=== PATIENT | male | born 1940 | race Caucasian/White ===

== ENCOUNTER 2019-10-30 18:38 | Inpatient (IN) | payer OTHER ==
[~2019-10-30] VITALS: Ht 193 cm; Wt 89.5 kg
--- NOTE | ~2019-10-30 | EMS ---
[address] [address] EMS Patient Care Report Name: BENJA APPLE Room #: REG ABBEY Yuan#: [id number] Admission: 10/30/19 Attend Phys: Discharge: Date of : 38 Report #: [id number] THIS REPORT FOR: //name// Report Transmitted: 10/30/2019 18:19 EMS Care Summary [facility] MED-ACT Incident [id number] @ 10/30/2019 17:59 Incident Location [address] [place] [address] Patient BENJA ORR Male, 79 Years 1940 Patient Address [address] [place] [address] Patient History Dementia,Diabetes,Gastro-Esophageal Reflux Disease (GERD),Atrial Fibrillation,Cardiac Murmur, Patient Allergies No known allergies, Patient Medications Lisinopril, Quetiapine, Flomax, Metformin, Namenda, Chief Complaint sucidal thoughts Disposition Transported No Lights/[place] Reason Psychiatric Problem/Abnormal Behavior/Suicide Attempt Transported To [facility] Narrative Pt is found sitting in a wheel chair in his living room in no distress. [address] [address] EMS Patient Care Report Name: BENJA APPLE Room #: REG ABBEY Pizano.#: [id number] Admission: 10/30/19 Attend Phys: Discharge: Date of : 38 Report #: [id number] Assisted living staff states pt needs to be transferred to the ER due to making suicidal ideations. Staff states pt has a hx of dementia and has been recently frustrated. Staff states pts PCP advised that pt needed to be transferred to the ER for a psych eval. Pt denied: CP, SOB, abd pain, weakness, n/v/d. Pt expressed no further complaints/discomfort. Tx= VS, pt able wheeled out to nearby cot and able to sit and stand to cot and secured without incident. En route= pt is calm and cooperative during transport, VS, hospital contact with info only, pt has no changes en route Initial Vitals @18:11P: 100,R: 16,BP: 95/61,Pain: 0/10,GCS: 14,SpO2: 100,Revised Trauma: 12, @18:23P: 102,R: 16,BP: 94/61,GCS: 14,SpO2: 100,Revised Trauma: 12, Assessments @18:11MENTAL:Person Oriented,Time Oriented,Place Oriented,Event Oriented,SKIN:HEENT:Head/Face: No Abnormalities,LUNG SOUNDS:General: No Abnormalities,ABDOMEN:General: No Abnormalities,PELVIS//GI:EXTREMITIES:Left Arm: No Abnormalities,Right Arm: No Abnormalities,Left Leg: No Abnormalities,Right Leg: No Abnormalities,PULSE:Radial: 2+ Normal,NEURO:No Abnormalities, Impression Suicidal Ideation Procedures @18:12Surgical Mask on PatientResponse: Unchanged Timeline 17:57,Call Received 17:57,Psap Call 17:59,Dispatched 18:00,En Route 18:03,On Scene 18:08,At Patient 18:11,BP: 95/61 M,PULSE: 100,RR: 16 R,SPO2: 100 Ox,ETCO2: ,BG: ,PAIN: 0,GCS: 14, 18:12,Surgical Mask on Patient,Response: Unchanged 18:18,Depart Scene 18:23,BP: 94/61 M,PULSE: 102,RR: 16 R,SPO2: 100 Ox,ETCO2: ,BG: ,PAIN: ,GCS: 14, 18:30,At Destination 18:45,Call Closed Disclaimer v1.1 Copyright 2020 [employer] This EMS Care Summary contains data elements from the applicable legal record [facility] [address] [place] [address] EMS Patient Care Report Name: BENJA APPLE Room #: REG [facility].#: [id number] Admission: 10/30/19 Attend Phys: Discharge: Date of : 38 Report #: [id number] (which may be displayed differently). It is designed to provide pertinent information for the following purposes: continuity of care, clinical quality, and state data reporting. The complete legal record is available to ED staff and administrators of the receiving hospital in [employer]'s Patient Tracker. All data is provided "as is."
[2019-10-30 18:44] VITALS: BP 103/60
[2019-10-30 19:32] LABS: ABSOLUTE NEUTROPHILS 3.7 thou/uL (1.4-8.2); BASOPHILS 1.2 % (0.0-2.0); EOSINOPHILS 1.7 % (0.0-3.0); HEMATOCRIT 33.5 % (42.0-52.0); HEMOGLOBIN 11.3 gm/dL (14.0-18.0); LYMPHOCYTES 15.9 % (24.0-44.0); MCH 30.3 pg (26.0-34.0); MCHC 33.7 g/dL (28.0-37.0); MCV 89.9 fL (80.0-100.0); MONOCYTES 8.4 % (1.0-8.0); PLATELET COUNT 211 thou/uL (150-400); POLYS 72.8 % (36.0-66.0); RBC 3.73 mil/uL (4.50-6.00); RDW 15.2 % (10.5-14.5); WBC 5.1 thou/uL (4.0-11.0)
[2019-10-30 19:42] LABS: CALCIUM 8.7 mg/dL (8.5-10.1); CREATININE 0.8 mg/dL (0.7-1.3); POTASSIUM 4.5 mmol/L (3.5-5.1)
[2019-10-30 19:48] LABS: ALBUMIN 3.2 g/dL (3.4-5.0); TOTAL PROTEIN 6.8 g/dL (6.4-8.2)
[2019-10-30] MEDS ORDERED: ARICEPT10 MG PO (21:07)
[2019-10-30] MEDS ORDERED: LIPITOR 40 MG T40 M1 PO (21:07)
[2019-10-30] MEDS ORDERED: ASA81BEC PO (21:07)
[2019-10-30] MEDS ORDERED: ESCITALOPRAM OX10 MG PO (21:08)
[2019-10-30] MEDS ORDERED: MEMANTINE HCL10 MG PO (21:10)
[2019-10-30] MEDS ORDERED: METOPROLOL SUCC25 M1 PO (21:10)
[2019-10-30] MEDS ORDERED: LISINOPRIL20 MG PO (21:10)
[2019-10-30 21:58] LABS: INR 3.6; PROTIME 37.2 Seconds (9.3-11.4)
[2019-10-30 23:50] LABS: URINE BILIRUBIN NEGATIVE (Negative); URINE BLOOD NEGATIVE (Negative); URINE CLARITY CLEAR; URINE COLOR YELLOW; URINE GLUCOSE-RANDOM* NEGATIVE (Negative); URINE KETONES NEGATIVE (Negative); URINE LEUKOCYTES-REFLEX TRACE (Negative); URINE NITRITE-REFLEX NEGATIVE (Negative); URINE PROTEIN (DIPSTICK) NEGATIVE (Negative); URINE SPECIFIC GRAVITY >= 1.030 (1.005-1.035)
[2019-10-31] MEDS ORDERED: WARFARIN SODIUM4 MG PO (00:10)
[2019-10-31] MEDS ORDERED: B-12 DOTS500 MCG PO (00:10)
[2019-10-31] MEDS ORDERED: WARFARIN SODIUM10 MG PO (00:10)
[2019-10-31] MEDS ORDERED: EYE HEALTH ADU1 EACH PO (00:11)
[2019-10-31] MEDS ORDERED: FLOMAX0.4 MG PO (00:12)
[2019-10-31] MEDS ORDERED: MELATONIN5 MG SUBLING (00:12)
[2019-10-31] MEDS ORDERED: SEROQUEL 25 MG25 MG PO ×2 (00:13)
[2019-10-31] MEDS ORDERED: TOLTERODINE TART1 MG PO (00:14)
[2019-10-31] MEDS ORDERED: SSD CREAM 1% 5050 GM TOP (00:14)
[2019-10-31] MEDS ORDERED: ZOFRAN4 MG PO (00:15)
--- NOTE | 2019-10-31 11:38 | EKG ---
[facility] [place] [address] ELECTROCARDIOGRAM REPORT Name: BENJA APPLE Room #: REG [facility]..#: [id number] Admission: 10/30/19 Attend Phys: Discharge: Date of : 38 Report #: [id number] THIS REPORT FOR: cc: Ander Watson MD, David W. MD Couchonnal, Luis F. MD ~ THIS REPORT FOR: //name// [facility] ED Test Date: 2019-10-30 Test Time: 19:33:49 Pat Name: BENJA APPLE Department: Room: Gender: [employer]: no : 1940 Requested By: Shalom Huang Order Number: [id number] MD: Gaurang Warner Measurements Intervals [place] Rate: 91 P: [place]: QRS: 83 QRSD: 114 T: 44 QT: 391 QTc: 482 Interpretive Statements Atrial fibrillation Anterior infarct, old No previous ECG available for comparison Electronically Signed On 10-31-2019 11:37:51 CDT by Gaurang Warner [email or web address] <ELECTRONICALLY SIGNED> By: Gaurang Warner MD 10/31/19 1137 32 32 Gaurang Warner MD /TONYA
[2019-11-01 10:13] VITALS: BP 130/64
[2019-11-01 19:37] VITALS: BP 97/55
[2019-11-01 19:45] VITALS: BP 97/55
[2019-11-02 07:37] VITALS: BP 134/69
[2019-11-02 13:49] VITALS: BP 134/69
[2019-11-02 20:07] VITALS: BP 119/62
[2019-11-03 05:54] LABS: PROTIME 13.8 Seconds (9.3-11.4)
[2019-11-03 05:57] LABS: INR 1.3
[2019-11-03 08:30] VITALS: BP 127/71
[2019-11-03 09:05] VITALS: BP 127/71
[2019-11-03 19:56] VITALS: BP 101/57
[2019-11-03 22:05] VITALS: BP 101/57
[2019-11-04 07:29] VITALS: BP 120/60
[2019-11-04 11:47] LABS: ABSOLUTE NEUTROPHILS 3.9 thou/uL (1.4-8.2); BASOPHILS 0.7 % (0.0-2.0); EOSINOPHILS 0.7 % (0.0-3.0); HEMATOCRIT 35.3 % (42.0-52.0); HEMOGLOBIN 12.2 gm/dL (14.0-18.0); LYMPHOCYTES 11.7 % (24.0-44.0); MCHC 34.6 g/dL (28.0-37.0); MCV 89.5 fL (80.0-100.0); MONOCYTES 11.4 % (1.0-8.0); PLATELET COUNT 204 thou/uL (150-400); POLYS 75.5 % (36.0-66.0); RBC 3.95 mil/uL (4.50-6.00); RDW 15.4 % (10.5-14.5); WBC 5.1 thou/uL (4.0-11.0)
[2019-11-04 11:54] LABS: CALCIUM 9.1 mg/dL (8.5-10.1); CREATININE 0.7 mg/dL (0.7-1.3); POTASSIUM 4.1 mmol/L (3.5-5.1)
[2019-11-04 12:45] VITALS: BP 120/60
[2019-11-04 18:21] LABS: URINE BILIRUBIN NEGATIVE (Negative); URINE BLOOD TRACE (Negative); URINE CLARITY CLEAR; URINE COLOR YELLOW; URINE GLUCOSE-RANDOM* NEGATIVE (Negative); URINE KETONES NEGATIVE (Negative); URINE LEUKOCYTES 1+ (Negative); URINE NITRITE NEGATIVE (Negative); URINE PROTEIN (DIPSTICK) NEGATIVE (Negative)
[2019-11-04 18:29] LABS: CASTS None Seen /LPF (None Seen); SQUAMOUS 0-3 Few /LPF (0-3)
[2019-11-04 18:30] LABS: CRYSTALS None Seen /LPF (None Seen)
[2019-11-04 18:31] LABS: BACTERIA 1-9 Few /HPF (None Seen); URINE RBC None Seen /HPF (0-2); URINE WBC 0-5 Rare /HPF (0-5)
[2019-11-04 19:50] VITALS: BP 92/53
[2019-11-04 21:46] VITALS: BP 92/53
--- NOTE | 2019-11-05 07:54 | EKG ---
[facility] [place] [address] ELECTROCARDIOGRAM REPORT Name: BENJA APPLE [facility] M.R.#: [id number] Admission: 11/01/19 Attend Phys: Mami Morse MD Discharge: Date of : 38 Report #: [id number] THIS REPORT FOR: cc: Ander Watson MD, David W. 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: DEN : 1940 Requested By: Mami Morse Order Number: [id number] MD: Husam Payne Measurements Intervals [place] Rate: 77 P: TN: QRS: 77 QRSD: 118 T: 64 QT: 425 QTc: 482 Interpretive Statements Atrial fibrillation Poor R wave progression Compared to ECG 10/30/2019 19:33:49 No significant change was found Electronically Signed On 11-05-2019 7:54:27 CDT by Husam Payne [email or web address] <ELECTRONICALLY SIGNED> By: Husam Payne MD, [facility] 11/05/19 0754 1013 1013 Husam Payne MD, [facility] /EPI
[2019-11-05 09:17] VITALS: BP 116/63
[2019-11-06 07:46] VITALS: BP 98/54
[2019-11-06 14:36] VITALS: BP 98/54
[2019-11-06 20:00] VITALS: BP 106/66
[2019-11-07 07:40] VITALS: BP 126/73
[2019-11-07 09:40] VITALS: BP 126/73
[2019-11-07 20:35] VITALS: BP 82/50
[2019-11-08 07:37] VITALS: BP 145/84
[2019-11-08 20:00] VITALS: BP 108/88
[2019-11-09 04:03] VITALS: BP 108/88
[2019-11-09 08:40] VITALS: BP 111/55
[2019-11-09 19:54] VITALS: BP 107/57
[2019-11-10 09:10] VITALS: BP 98/61
[2019-11-10 19:30] VITALS: BP 107/60
[2019-11-11 06:54] LABS: ALBUMIN 3.2 g/dL (3.4-5.0); CALCIUM 8.9 mg/dL (8.5-10.1); CREATININE 0.6 mg/dL (0.7-1.3); POTASSIUM 4.4 mmol/L (3.5-5.1); TOTAL BILIRUBIN 0.9 mg/dL (0.2-1.0); TOTAL PROTEIN 6.5 g/dL (6.4-8.2)
[2019-11-11 09:13] VITALS: BP 102/65
[2019-11-11 17:14] VITALS: BP 102/65
[2019-11-11 21:07] VITALS: BP 106/54
[2019-11-12 09:16] VITALS: BP 109/65
--- NOTE | 2019-11-12 15:52 | HC ---
[facility] [place] [address] CONSULTATION Name: BENJA APPLE Room #: 526B-B ADM IN M.R.#: [id number] Admission: 11/01/19 Attend Phys: Mami Morse MD Discharge: Date of : 38 Report #: [id number] THIS REPORT FOR: cc: Ander Watson MD, David W. MD Althoff, Jeffrey R. MD ~ CC: Kaiden Morse DATE OF SERVICE: 11/09/2019 CHIEF COMPLAINT: Bilateral lower extremity ulcerations. HISTORY OF PRESENT ILLNESS: This is an 79-year-old male patient who was admitted to the Geriatric Psychiatry unit with a known history of type 2 diabetes mellitus, atrial fibrillation, hypertension, was noted to have multiple ulcerations of the lower extremities. I have been asked to see him with regard to wound care. PAST MEDICAL HISTORY: Positive for history of dementia with behavioral disturbances, suicidal ideations. He has a history of atrial fibrillation, hypertension, type 2 diabetes mellitus. He is not able to provide much information about himself. MEDICATIONS: At this time include ____, atorvastatin, escitalopram, memantine, metoprolol, lisinopril, Coumadin, aspirin, cyanocobalamin, tamsulosin, melatonin, quetiapine. ALLERGIES: No known drug allergies. SOCIAL HISTORY: Positive for ____. He lives in a penitentiary. OTHER SIGNIFICANT HISTORY AND FAMILY HISTORY: Unknown. REVIEW OF SYSTEMS: Really unobtainable due to the patient's dementia and unwillingness to answer most questions. He has no pain in his legs. PHYSICAL EXAMINATION: VITAL SIGNS: At this time include temperature 36.4, pulse 81, respiratory rate 18, blood pressure 111/55. GENERAL: This is a chronically ill-appearing male patient who appears to be in no distress. HEENT: Head normocephalic. Nose and throat are clear. NECK: Supple. LUNGS: Clear. [facility] [address] [place] [address] CONSULTATION Name: BENJA APPLE Room #: 52-B ADM IN M.R.#: [id number] Admission: 11/01/19 Attend Phys: Mami Morse MD Discharge: Date of : 38 Report #: [id number] ABDOMEN: Soft. Bowel sounds present. EXTREMITIES: Examination of the lower extremities demonstrates what appears to be an ulceration of the left and right great toes, venous type ulceration to the left lower extremity and he has a few traumatic wounds to the right forearm. LABORATORY DATA: Sodium 135, potassium 4.1, chloride 101, CO2 of 29, BUN 22, creatinine 0.7, glucose 86, calcium is 9.1, alkaline phosphatase 105, albumin is 3.2. INR 1.3. White blood cell count 5.1 with hemoglobin 12.2, hematocrit 35.3. CLINICAL IMPRESSION: 1. Traumatic wounds to the right forearm. 2. Skin tear, left elbow. 3. Vascular ulceration to the left and right great toes. 4. Venous type ulcerations to the left lower extremity. 5. Dementia with behavioral disturbance. 6. Atrial fibrillation. 7. Type 2 diabetes mellitus. 8. History of alcohol abuse. RECOMMENDATIONS: At this point in time, recommend bordered foam to the ____ forearm. We will recommend Betadine and otherwise open to air both great toes. Recommend bordered foam daily to the left lower extremity ulceration. Additionally, we will recommend arterial Dopplers to evaluate blood flow. Continue medical management of his atrial fibrillation, type 2 diabetes mellitus. He will need nutritional support to maximize wound healing and maintain glycemic control. I appreciate being asked to see him in consultation. <ELECTRONICALLY SIGNED> By: Drake Washington MD 11/12/19 1552 [id number] 1105 Drake Washington MD /nt
[2019-11-12 20:12] VITALS: BP 106/68
[2019-11-13 13:29] VITALS: BP 109/67
[2019-11-13 19:56] VITALS: BP 110/64
[2019-11-13 23:54] VITALS: BP 110/64
[2019-11-14 09:19] VITALS: BP 120/69
[2019-11-15 01:01] VITALS: BP 120/69
[2019-11-15 07:00] VITALS: BP 124/73
[2019-11-15 20:39] VITALS: BP 117/64
[2019-11-16 08:51] VITALS: BP 116/73
[2019-11-16 14:05] VITALS: BP 116/73
[2019-11-16] MEDS ORDERED: SEROQUEL 100 M100 M1 PO ×2 (17:16)
[2019-11-16] MEDS ORDERED: DEPAKOTE500 MG PO (17:16)
[2019-11-16 19:56] VITALS: BP 114/73
[2019-11-17 07:40] VITALS: BP 115/79
[2019-11-17 09:41] VITALS: BP 115/79
== END 2019-11-17 11:10 | DRG 884 ==
LOC: ER 18:38 → SBH 11-01 10:13 → EROBS 11-01 10:24 → SBH 11-01 10:27
PROVIDERS: Emergency Medicine; Hospitalist; ADMIT Psychiatry & Neurology Psychiatry; ATTEND Psychiatry & Neurology Psychiatry
DX: F03.91 Unspecified dementia, unspecified severity, with behavioral disturbance (principal); R45.851 Suicidal ideations; L97.929 Non-pressure chronic ulcer of unspecified part of left lower leg with unspecified severity; E44.1 Mild protein-calorie malnutrition; F32.9 Major depressive disorder, single episode, unspecified; G47.00 Insomnia, unspecified; I48.91 Unspecified atrial fibrillation; E11.9 Type 2 diabetes mellitus without complications; I10 Essential (primary) hypertension; F10.11 Alcohol abuse, in remission; L97.529 Non-pressure chronic ulcer of other part of left foot with unspecified severity; L97.519 Non-pressure chronic ulcer of other part of right foot with unspecified severity; S51.012A Laceration without foreign body of left elbow, initial encounter; X58.XXXA Exposure to other specified factors, initial encounter; Z66 Do not resuscitate; Z20.828 Contact with and (suspected) exposure to other viral communicable diseases; Y93.89 Activity, other specified; Y92.89 Other specified places as the place of occurrence of the external cause; Y99.8 Other external cause status; Z68.24 Body mass index [BMI] 24.0-24.9, adult; Z79.82 Long term (current) use of aspirin; Z79.01 Long term (current) use of anticoagulants; Z79.899 Other long term (current) drug therapy; Z87.891 Personal history of nicotine dependence
CPT/HCPCS: 10880

== ENCOUNTER 2019-12-01 15:40 | Inpatient (IN) | payer OTHER ==
[~2019-12-01] VITALS: Ht 190.5 cm; Wt 95.3 kg
[~2019-12-01 15:40] MED LIST: ARICEPT10 MG PO; ASA81BEC PO; B-12 DOTS500 MCG PO; DEPAKOTE500 MG PO; ESCITALOPRAM OX10 MG PO; EYE HEALTH ADU1 EACH PO; FLOMAX0.4 MG PO; LIPITOR 40 MG T40 M1 PO; LISINOPRIL20 MG PO; MELATONIN5 MG SUBLING; MEMANTINE HCL10 MG PO; METOPROLOL SUCC25 M1 PO; SEROQUEL 100 M100 M1 PO; SEROQUEL 25 MG25 MG PO; SSD CREAM 1% 5050 GM TOP; TOLTERODINE TART1 MG PO; WARFARIN SODIUM10 MG PO; WARFARIN SODIUM4 MG PO; ZOFRAN4 MG PO
[2019-12-01 15:45] VITALS: BP 98/50
[2019-12-01 17:12] LABS: ABSOLUTE NEUTROPHILS 5.6 thou/uL (1.4-8.2); BASOPHILS 0.6 % (0.0-2.0); EOSINOPHILS 0.7 % (0.0-3.0); HEMATOCRIT 29.8 % (42.0-52.0); HEMOGLOBIN 9.9 gm/dL (14.0-18.0); LYMPHOCYTES 10.4 % (24.0-44.0); MCH 29.8 pg (26.0-34.0); MCHC 33.3 g/dL (28.0-37.0); MCV 89.6 fL (80.0-100.0); MONOCYTES 11.1 % (1.0-8.0); PLATELET COUNT 201 thou/uL (150-400); POLYS 77.2 % (36.0-66.0); RBC 3.33 mil/uL (4.50-6.00); RDW 15.3 % (10.5-14.5); WBC 7.2 thou/uL (4.0-11.0)
[2019-12-01 17:21] LABS: CALCIUM 8.5 mg/dL (8.5-10.1); CREATININE 0.8 mg/dL (0.7-1.3); POTASSIUM 4.3 mmol/L (3.5-5.1)
[2019-12-01 19:45] VITALS: BP 102/60
[2019-12-01 20:30] VITALS: BP 126/73
[2019-12-01 20:55] VITALS: BP 129/77
--- NOTE | 2019-12-02 02:32 | NUR ---
PT ARRIVED FROM THE ER @2029 ALERT TO SELF CONFUSED WITH HX OF DEMENTIA. PT OREINTED TO UNIT. ADMISSION DONE. THIS NURSE CALLED PT DPOA ARTHUR AND UPDATED ABOUT CARE. PT UP TO THE BSC. HAD A BM THIS SHIFT. WOUND PICTURES TAKEN. PT HAS SCARS AND SCRATCHES FROM PREVIOUS WOUND. DRESSING PLACE ON RT UPPER ARM FROM SKIN BLEEDING. PT IMPULSIVE GETS UP WHEN HE NEEDS TO VOID. ROOM IN FRONT OF NURSES STATION. FALL PREC IN PLACE AND CALL LIGHT IN REACH WILL CONT WITH POC TILL EOS.
[2019-12-02 03:23] VITALS: BP 126/81
[2019-12-02 05:50] LABS: HEMATOCRIT 29.6 % (42.0-52.0); MCHC 33.6 g/dL (28.0-37.0); MCV 89.2 fL (80.0-100.0); RBC 3.32 mil/uL (4.50-6.00); RDW 15.1 % (10.5-14.5); WBC 5.1 thou/uL (4.0-11.0)
[2019-12-02 06:11] LABS: CALCIUM 8.8 mg/dL (8.5-10.1); CREATININE 0.8 mg/dL (0.7-1.3)
[2019-12-02 08:00] VITALS: BP 124/72
[2019-12-02 11:24] VITALS: BP 124/72
--- NOTE | 2019-12-02 12:21 | NUR ---
FAXED CLINICAL UPDATE TO [facility] RECEIVED CONFIRMATION. DP TO FOLLOW.
--- NOTE | 2019-12-02 13:04 | NUR ---
PT ALERT TO SELF ONLY, VSS, SEVERAL WOUNDS. ONE PERSON ASSIST AMBULATION. PT HAS A HISTORY OF FALLS. DRESSINGS ON LEFT ELBOW HAS BEEN REINFORCED. PT IS CONFUSED, AND IMPULSIVE WITH FALL PRECAUTIONS IN PLACE, WILL CONTINUE TO MONITOR.
--- NOTE | 2019-12-02 13:18 | NUR ---
PT ADMITTED RELATED TO CELLULITIS, LT NECROTIC TOE. CM REVIEWED CHART AND SPOKE WITH CARE TEAM. CM CALLED AND SPOKE WITH PT'S DPOA/BROTHER THIS AM. HE INDICATED THAT PT RESIDES IN [facility]. 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 PT HAD BEEN ON SBHU HERE AT [facility] FROM 10/29-11/16. DPOA INDICATED PLAN IS FOR PT TO RETURN TO [facility] ONCE MEDICALLY STABLE. CLINICAL INFOR SENT TO FACILITY. CM TO FOLLOW INDICATED WITH DC PLANNING. ORTHO, WC, AND IR ARE CONSULTED.
[2019-12-02 14:02] VITALS: BP 124/72
[2019-12-02 16:05] VITALS: BP 113/59
[2019-12-02 17:00] LABS: PROTIME 47.7 Seconds (9.3-11.4)
[2019-12-02 17:37] LABS: INR 4.7
[2019-12-02 18:56] VITALS: BP 134/90
--- NOTE | 2019-12-02 19:18 | NUR ---
I AGREE WITH NURSING ASSESSMENT DONE BY JUSTYN/CATRACHITO. I AGREE WITH NURSING NURSING NOTE DONE BY JUSTYN/CATRACHITO.
--- NOTE | 2019-12-03 02:27 | NUR ---
ASSUMED PT CARE AT 1900.PT IMPULSIVE AND CONFUSED,SITTER IN PLACE.DRSG TO HIS RACHEL TOES DONE.DR FRIED HERE TO SEE PT.PT NPO AT THIS TIME FOR SURGERY LATER IN THE DAY.IVF AND IV ABX INFUSING ORDERED.PT SLEEPING ON HIS BED AT THIS TIME.CALL LIGHT WITHIN REACH.
[2019-12-03 05:48] LABS: HEMATOCRIT 30.4 % (42.0-52.0); HEMOGLOBIN 10.1 gm/dL (14.0-18.0); MCH 29.8 pg (26.0-34.0); MCHC 33.1 g/dL (28.0-37.0); MCV 89.9 fL (80.0-100.0); RBC 3.38 mil/uL (4.50-6.00); RDW 15.1 % (10.5-14.5); WBC 5.8 thou/uL (4.0-11.0)
[2019-12-03 06:04] LABS: CALCIUM 8.5 mg/dL (8.5-10.1); CREATININE 0.6 mg/dL (0.7-1.3); POTASSIUM 4.1 mmol/L (3.5-5.1)
--- NOTE | 2019-12-03 07:40 | NUR ---
Nutrition: Assessed due to documentation of cellulitis/wound. Pt admit for cellulitis w/ gangrene of L 2nd toe. Per EMR, pt will require amputation of 2nd toe. Hx dementia, a fib, HTN, peripheral vascular disease. Was A&O to self only yesterday and noted to be confused/impulsive overnight, requiring a sitter. Is currently NPO; having surgery today. Recently here in October, 10/29 - 11/16 on [facility] unit per EMR. Seen by RD during last stay and was noted to be eating well, 100% most meals. Also liked Glucerna shakes and was receiving BID. RD plans to re-add Glucerna supplements BID once diet medically indicated to advance following amputation surgery. Weight is up +19# from 1 mo ago. 11/01/19: 197# 12/01/19: 216# Anticipate low nutrition risk and can follow up again next week once meal trends established. Encourage protein.
[2019-12-03 07:42] LABS: ALBUMIN 2.8 g/dL (3.4-5.0); DIRECT BILIRUBIN 0.2 mg/dL (<0.1-0.2); TOTAL BILIRUBIN 0.8 mg/dL (0.2-1.0); TOTAL PROTEIN 6.9 g/dL (6.4-8.2)
[2019-12-03 07:47] LABS: PROTIME 34.8 Seconds (9.3-11.4)
[2019-12-03 07:51] LABS: INR 3.4
[2019-12-03 08:53] VITALS: BP 127/95
[2019-12-03 16:44] VITALS: BP 127/80
--- NOTE | 2019-12-03 17:16 | NUR ---
PT IS ALERT TO SELF, VSS, ONE PERSON ASSIST. PT IS AGITATED AND IMPULSIVE, UNSTEADY ON HIS FEET. PT HAS A ONE ON ONE SITTER. FALL PRECAUTIONS ARE IN PLACE, WILL CONTINUE TO MONITOR.
[2019-12-03 17:47] VITALS: BP 127/80
[2019-12-03 19:44] VITALS: BP 121/75
[2019-12-04] VITALS (14 sets, daily range): BP systolic 108–169; BP diastolic 58–94
--- NOTE | 2019-12-04 01:44 | NUR ---
ASSUMED PT CARE AT AROUND 1915 HRS PT SEEMS MORE CALM.ALERT TO SELF, PLACE AND THE YEAR.TOOK HS MEDS OKAY. PT LEG WOUNDS IS WRAPPED.SCATTERD BRUISING NOTED MOSTLY TO LEGS.ROOM AIR. DENIES PAIN. SITTER IN PLACE.NPO AFTER MIDNOC. FALL PREC IN PLACE.
[2019-12-04 05:51] LABS: HEMOGLOBIN 9.9 gm/dL (14.0-18.0); MCH 30.6 pg (26.0-34.0); MCHC 34.2 g/dL (28.0-37.0); MCV 89.5 fL (80.0-100.0); RBC 3.24 mil/uL (4.50-6.00); RDW 15.9 % (10.5-14.5); WBC 6.8 thou/uL (4.0-11.0)
[2019-12-04 06:01] LABS: PROTIME 18.3 Seconds (9.3-11.4)
[2019-12-04 06:07] LABS: CALCIUM 8.6 mg/dL (8.5-10.1); CREATININE 0.8 mg/dL (0.7-1.3); POTASSIUM 3.9 mmol/L (3.5-5.1)
[2019-12-04 06:15] LABS: INR 1.8
--- NOTE | 2019-12-04 12:59 | NUR ---
Assumed care of pt. at 0700. Pt. is calm and cooperative. He does periodically ask what the plan is for his care. Pt. was transferred to angiogram and then to 2N. Report given to RN on 2N.
--- NOTE | 2019-12-04 15:51 | NUR ---
TO UNIT FROM [facility]ER BY BED, REPORT FROM BINDER CASER RN. BEDREST, RIGHT LEG SECURED D/T HEMATOMA IN THE LAB. RIGHT GROIN SOFT, DRESSING CDI NOW. VSS. SITTER AT BEDSIDE. WILL CONTINUE TO FOLLOW CLOSELY.
[2019-12-05 05:04] VITALS: BP 109/61
[2019-12-05 05:59] LABS: CALCIUM 8.5 mg/dL (8.5-10.1); CREATININE 0.6 mg/dL (0.7-1.3); POTASSIUM 3.7 mmol/L (3.5-5.1)
[2019-12-05 06:20] LABS: HEMATOCRIT 26.9 % (42.0-52.0); HEMOGLOBIN 8.9 gm/dL (14.0-18.0); MCH 29.5 pg (26.0-34.0); MCHC 33.3 g/dL (28.0-37.0); MCV 88.7 fL (80.0-100.0); RBC 3.03 mil/uL (4.50-6.00); RDW 15.1 % (10.5-14.5); WBC 5.7 thou/uL (4.0-11.0)
[2019-12-05 09:01] VITALS: BP 95/54
[2019-12-05 11:12] VITALS: BP 103/56
[2019-12-05 16:29] VITALS: BP 105/62
--- NOTE | 2019-12-05 18:21 | NUR ---
PT ASSESSED AT START OF SHIFT. PT CONFUSED BUT KNOWS HE'S IN THE HOSPITAL. TRIES TO GE UP ON HIS OWN. SITTER AT BEDSIDE. HEART RATE BETTER TODAY AFTER AM METOPROLOL. WAS UP IN THE CHAIR FOR SEVERAL HOURS. HAD LARGE SOFT BM. EATING AND DRINKING WELL.
[2019-12-05 19:38] VITALS: BP 102/59
--- NOTE | 2019-12-06 04:07 | NUR ---
ASSESSMENT DOCUMENTED.PT BEEN RESTING IN NO ACUTE DISTRESS.SITTER AT BEDSIDE.A/OX2-3 WITH CONFUSION AND FORGETFULNESS.FOLLOWS SIMPLE COMMNANDS.AFIB ON MONITOR.TACHY WITH ACTIVITIES.DRESSING TO LEFT FOOT CDI.WILL CONT TO MONITOR PER POC.
[2019-12-06 04:34] VITALS: BP 120/61
[2019-12-06 07:10] VITALS: BP 115/70
[2019-12-06 11:00] VITALS: BP 117/76
[2019-12-06 16:00] VITALS: BP 115/60
[2019-12-06 20:32] VITALS: BP 123/65
--- NOTE | 2019-12-07 03:29 | NUR ---
SITTER AT THE BEDISDE FOR SAFETY.DENIES PAIN.ABLE TO POSITION HIMSELF IN BED. NPO SINCE MIDNIGHT FOR A POSSIBLE SURGERY TODAY.MONITOR SHOWS AFIB.POC CONTINUED.
[2019-12-07 05:07] VITALS: BP 136/64
[2019-12-07 07:10] VITALS: BP 122/63
--- NOTE | 2019-12-07 12:10 | 2DMMODE ---
[facility] [place] [address] 2 D/M-MODE ECHOCARDIOGRAM Name: BENJA APPLE Room #: 206-P ADM IN M.R.#: [id number] Admission: 12/01/19 Attend Phys: Too Sorenson MD Discharge: Date of : 38 Report #: [id number] THIS REPORT FOR: cc: Ander Watson MD, David W. MD Mancuso, Gerald M. MD [facility] ~ ADDENDUM APPROVED REPORT Study performed: 12/07/2019 09:54:26 EXAM: Comprehensive 2D, Doppler, and color-flow Echocardiogram Patient Location: Bedside Room #: 206 Status: routine BSA: 2.24 HR: 71 bpm BP: 122/63 mmHg Rhythm: Atrial Fibrillation Other Information Study Quality: Fair Indications Aortic Valve Disease Murmur Atrial Fibrillation Hypertension/HDD 2D Dimensions IVSd: 11.37 (7-11mm) LVOT Diam: 19.45 (18-24mm) LVDd: 52.81 mm PWd: 11.88 (7-11mm) LVDs: 34.29 (25-40mm) Aortic Root: 29.96 mm IVC: 39.00 mm Aortic Valve AoV Peak Maximino.: 4.82 m/s AO Peak Gr.: 92.94 mmHg LVOT Max P.08 mmHg AO Mean Gr.: 56.15 mmHg LVOT Mean P.60 mmHg AO V2 Mean: 3.44 m/s LVOT Max V: 0.88 m/s AO V2 VTI: 132.61 cm LVOT Mean V: 0.58 m/s TERESA (VTI): 0.49 cm2 LVOT V1 VTI: 22.02 cm TERESA Vmax: 0.54 cm2 SV (LVOT): 65.40 mL [facility] [place] [address] 2 D/M-MODE ECHOCARDIOGRAM Name: BENJA APPLE Room #: [address] [place] [address] [place] [facility].#: [id number] Admission: 12/01/19 Attend Phys: Too Sorenson MD Discharge: Date of : 38 Report #: [id number] Pulmonary Valve PV Peak Maximino.: 0.83 m/s PV Peak Gr.: 2.77 mmHg Tricuspid Valve TR Peak Maximino.: 3.14 m/s TR Peak Gr.: 39.51 mmHg PA Pressure: 55.00 mmHg Left Ventricle The left ventricle is normal size. Mild concentric left ventricular hypertrophy. The left ventricular systolic function is normal. The left ventricular ejection fraction is within the normal range. LVEF is 55-60%. This study is not technically sufficient to allow evaluation of the LV diastolic function due to atrial fibrillation. Right Ventricle The right ventricle is normal size. The right ventricular systolic function is normal. Atria Left atrium is dilated. Right atrium is dilated. Aortic Valve The aortic valve is normal in structure. Aortic valve is calcified. Trace aortic regurgitation. Severe aortic stenosis. Mitral Valve The mitral valve is normal in structure. Mild to moderate mitral regurgitation. No evidence of mitral valve stenosis. Tricuspid Valve The tricuspid valve is normal in structure. There is moderate tricuspid regurgitation. Estimated PAP 55 mmHg. There is moderate pulmonary hypertension. Pulmonic Valve The pulmonary valve is normal in structure. Trace to mild pulmonic regurgitation. Great Vessels The aortic root is normal in size. The inferior vena cava is dilated with no inspiratory collapse. Pericardium [facility] [address] [place] [address] 2 D/M-MODE ECHOCARDIOGRAM Name: BENJA APPLE Room #: 206-P [facility] IN M.R.#: [id number] Admission: 12/01/19 Attend Phys: Too Sorenson MD Discharge: Date of : 38 Report #: [id number] There is no pericardial effusion. <Conclusion> The left ventricle is normal size. LVEF is 55-60%. Left atrium is dilated. Right atrium is dilated. The aortic valve is normal in structure. Aortic valve is calcified. Trace aortic regurgitation. The tricuspid valve is normal in structure. There is moderate tricuspid regurgitation. Estimated PAP 55 mmHg. There is moderate pulmonary hypertension. The pulmonary valve is normal in structure. Trace to mild pulmonic regurgitation. There is no pericardial effusion. severe .6cm2 mean grad 44mhg <ELECTRONICALLY SIGNED> By: Faizan Dwyer MD, FAC 12/07/199 08 08 Faizan Dwyer MD, [facility] /INF
--- NOTE | 2019-12-07 12:17 | HC ---
[facility] [place] [address] CONSULTATION Name: BENJA APPLE Room #: 206-P ADM IN M.R.#: [id number] Admission: 12/01/19 Attend Phys: Too Sorenson MD Discharge: Date of : 38 Report #: [id number] THIS REPORT FOR: cc: Ander Watson MD, David W. MD Mancuso, Gerald M. MD FACC ~ CC: Ander Sorenson CARDIOLOGY CONSULTATION HISTORY OF PRESENT ILLNESS: The patient is an 79-year-old male. 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 He does live in a facility. I am asked to weigh in on his AFib, RVR. He has been in the hospital here for some days now. He was seen by Interventional Radiology for a necrotic second great toe on the left foot, but no intervention. The SFAs were both patent. 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 No intervention. Longstanding venous stasis changes. His pulse has been increasing into the 120s to 130s with any activity. It looks from review of the records that he has permanent AFib and had been anticoagulated with warfarin and in fact his INR was supratherapeutic. He denies any real symptomatology from this. LABORATORY DATA: His current laboratory work; creatinine 0.9, potassium 3.7, glucose 108, this was yesterday. Albumin slightly low. Lactate was 1.6. His GFR was 129. CRP was elevated. His INR was 1.8 two days ago, but initially 4.7. H and H are 8.9 and 26.9, white count 5.7, platelets 208. Dr. Ray did the aortogram on 12/03 two days ago, you can see that report. PAST MEDICAL HISTORY: Positive for the cellulitis, gangrene of the left second toe, peripheral vascular disease as stated above, permanent AFib, hypertension, some early progressive dementia. MEDICATIONS: Depakote, Seroquel, atorvastatin 40, warfarin, metoprolol 25, Celexa, donepezil, melatonin at night, Namenda 10 mg, tamsulosin. SOCIAL HISTORY: He lives in a facility. 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 He had binged some alcohol, but no tobacco use, he states. FAMILY HISTORY: Negative for any premature coronary artery disease, he states. PHYSICAL EXAMINATION: GENERAL: He is pleasant and alert for the most part, seems to be appropriate in his answers. VITAL SIGNS: His pulse has been 80s to 120s. Blood pressure 114/70. HEENT: Eyes reveal no xanthelasmas. Pharynx is clear. NECK: Shows preserved upstrokes without JVD or bruits. [facility] [address] [place] [address] CONSULTATION Name: BENJA APPLE Room #: 206-P ADM IN M.R.#: [id number] Admission: 12/01/19 Attend Phys: Too Sorenson MD Discharge: Date of : 38 Report #: [id number] LUNGS: Slight prolonged expiratory phase, but clear. CARDIAC: Irregularly irregular. There is a holosystolic murmur at the apex. ABDOMEN: Soft. No HSM or abdominal bruit. EXTREMITIES: Reveal 1+ edema. There is significant venous stasis dermatitis noted to the mid quezada bilaterally. There is a bandage and what appears to be moderately gangrenous and necrotic left second toe. I cannot palpate distal pulses. NEUROLOGIC: Intact. MUSCULOSKELETAL: Generalized arthritic changes. I did not ambulate him. ASSESSMENT: 1. Permanent atrial fibrillation with rapid ventricular response. 2. Vascular disease with history of a left great toe necrosis, status post PT. 3. Hypertension. 4. Cellulitis as described above. 5. Some early dementia. RECOMMENDATIONS AND PLAN: IV Lopressor for additional rate, increase Toprol to 50 mg. We will obtain an echo Doppler and may need to add low-dose Cardizem in addition for rate control. I am not eliciting any unstable anginal or significant underlying coronary issue that would prohibit a toe amputation. We will follow with you. Obtain an echo Doppler in the morning for this holosystolic murmur, I believe this would be a mitral insufficiency murmur. He may also have some aortic valve sclerosis, although I do not anticipate significant stenosis. We will add these medicines for rate control and follow. Thank you for asking me to assist in the care of this patient. <ELECTRONICALLY SIGNED> By: Faizan Dwyer MD, FACC 12/07/19 1217 0951 1048 Faizan Dwyer MD, FACC /nt
[2019-12-07 13:13] VITALS: BP 124/63
--- NOTE | 2019-12-07 16:10 | NUR ---
PT RESIDES AT [facility] FAXED CLINICAL UPDATE TO FACILITYE RECEIVED CONFIRMATION LEFT MSG WITH ADM. DP TO FOLLOW.
[2019-12-07 18:15] VITALS: BP 108/65
--- NOTE | 2019-12-07 18:23 | NUR ---
ASSUMED CARE OF PT AT SHIFT CHANGE. ASSESSMENTS CHARTED. MEDS GIVEN PER MAY. PT ALERT TO SELF AND PLACE. PT IMPLUSIVE, SITTER IN ROOM. PT BACK FROM AMPUTATION OF 2ND TOE, LEFT FOOT. TOLERATED WELL, NO C/O PAIN. WILL CONTINUE TO MONITOR AND FOLLOW POC.
[2019-12-07 18:53] VITALS: BP 109/57
[2019-12-08 05:41] VITALS: BP 124/66
[2019-12-08 07:25] VITALS: BP 131/68
--- NOTE | 2019-12-08 07:28 | NUR ---
WILL GET UP WITHOUT CALLING WHEN HE NEEDS TO URINATE OTHERWISE HE'S QUIET IN BED.SPO2 IS LESS THAN 92%;PLACED ON O2 1L NC.MONITOR SHOWS AFIB.POC CONTINUED.
--- NOTE | 2019-12-08 08:26 | O ---
[facility] [place] [address] [place] [address] OPERATIVE REPORT Name: BENJA APPLE Room #: 216-P ADM IN M.R.#: [id number] Admission: 12/01/19 Attend Phys: Too Sorenson MD Discharge: Date of : 38 Report #: [id number] THIS REPORT FOR: cc: Ander Watson MD, David W. MD Clymer, David J. MD ~ CC: Ander Sorenson PREOPERATIVE DIAGNOSIS: Gangrenous left second toe. POSTOPERATIVE DIAGNOSIS: Gangrenous left second toe. PROCEDURE: Amputation, left second toe. SURGEON: Ander Ochoa MD INDICATIONS: This 79-year-old gentleman with severe peripheral vascular disease, has a gangrenous left second toe. He has much less significant vascular changes in other digits. I have discussed with the patient and his family the treatment options and they prefer to go ahead with amputation of the second digit only. They all understand that he does have vascular problems which might create difficulties with wound healing or ongoing infection and at some point might require a more proximal level amputation. They are hopeful that simply removing the second toe at this point will be adequate. DESCRIPTION OF PROCEDURE: The patient was taken to the operating room where he was placed under brief general anesthetic. He has continued on his current antibiotic regimen. The left foot was meticulously prepped and draped. An Esmarch bandage was used as a gentle tourniquet. A fish-mouth shaped skin incision was made at the base of the second toe. This was extended sharply through subcutaneous tissues and fascia down to the bone. The dissection was then extended in a subperiosteal fashion back to the MP joint where the amputation was completed. The toe was passed off the field. The wound was gently irrigated. There was satisfactory vascular supply and there appears to be a good chance for healing at this level. The wound was then closed using multiple 3-0 nylon sutures. A sterile dressing was applied. The patient was awakened and returned to recovery room in good condition. <ELECTRONICALLY SIGNED> By: Ander Ochoa MD 12/08/19 0826 1210 1219 Ander Ochoa MD /nt
[2019-12-08 11:29] VITALS: BP 108/52
[2019-12-08 15:41] VITALS: BP 110/40
--- NOTE | 2019-12-08 16:32 | NUR ---
ASSUMED CARE OF PT AT SHIFT CHANGE. ASSESSMENTS CHARTED. MEDS GIVEN PER MAR. PT ALERT TO SELF, DOES NOT USE CALL LIGHT. TRIES TO EXIT BED WHEN NEEDING TO URINATE. NEEDS HELP USING URINAL. NO C/O PAIN. FLUIDS INFUSING. ON 1-2L NC, D/T DESATTING. WILL CONTINUE TO MONITOR AND FOLLOW POC.
[2019-12-08 19:46] VITALS: BP 114/49
[2019-12-09 04:26] VITALS: BP 111/66
--- NOTE | 2019-12-09 05:36 | NUR ---
PATIENT IS PROGRESSING SLOWLY IN HIS CARE PLAN. VITAL SIGNS STABLE WITH PATIENT HAVING NO COMPLAINTS OF PAIN OR NAUSEA THROUGHOUT SHIFT. ORIENTED TO SELF AND SOMETIMES LOCATION, PATIENT IS CONFUSED AND UNABLE TO CALL APPROPRIATELY FOR NEEDS OR PARTICIPATE IN CARE. PATIENT HAS BEEN IMPULSIVE ONLY A FEW TIMES PRIMARILY WHEN HE NEEDS TO URINATE. SITTER TO BE DC'D BEFORE MORNING SHIFT. SURGICAL DRESSING CLEAN, DRY AND INTACT. CONTINUE PLAN OF CARE.
[2019-12-09 06:03] LABS: HEMATOCRIT 29.2 % (42.0-52.0); HEMOGLOBIN 9.6 gm/dL (14.0-18.0); MCH 29.5 pg (26.0-34.0); MCHC 32.8 g/dL (28.0-37.0); MCV 90.1 fL (80.0-100.0); RBC 3.24 mil/uL (4.50-6.00); RDW 15.9 % (10.5-14.5); WBC 6.5 thou/uL (4.0-11.0)
[2019-12-09 06:43] LABS: ALBUMIN 2.4 g/dL (3.4-5.0); CALCIUM 8.6 mg/dL (8.5-10.1); CREATININE 0.8 mg/dL (0.7-1.3); MAGNESIUM 2.2 mg/dL (1.8-2.4); POTASSIUM 3.9 mmol/L (3.5-5.1); TOTAL BILIRUBIN 0.6 mg/dL (0.2-1.0); TOTAL PROTEIN 6.5 g/dL (6.4-8.2)
--- NOTE | 2019-12-09 14:07 | PATH ---
[facility] [place] [address] PATHOLOGY RPT PROCEDURE Name: MILES APPLE Room #: 216-P ADM IN M.R.#: [id number] Admission: 12/01/19 Date of : 38 Discharge: Report #: [id number] Path Case #: [id number] [facility] Accession Number: [id number] . 01 Material submitted: . toe - LEFT SECOND TOE. Modifiers: left, second . 01 Clinical history: . GANGRENE LEFT 2ND TOE; CELLULITIS REQUIRING IV ABX . 02 Diagnosis: Toe "left second toe, amputation": - Deep penetrating ulceration with epidermal necrosis and acute inflammation extending into the underlying bone with acute osteomyelitis and abscess formation. - The skin margins appear viable. - The perpendicular bone margin reveals periosteal fibrosis but no obvious acute osteomyelitis. (SHA:anabel; 12/09/2019) S 12/09/2019 1245 Local . 02 Electronically signed: . David Arnett MD, Pathologist NPI- [id number] . 01 Gross description: . The specimen is received in formalin, labeled "Miles Apple, left second toe" and consists of the mummified disarticulated toe measuring 6.3 x 2.4 x 1.9 cm. A nail is present which is irregularly thickened yellow. The skin is extensively covered by black mummification. The proximal bone margin is a smooth collins concave articular surface. Invoice Control Clerk sections are submitted as follows after decalcification: . A1: Full-thickness through lesion A2: Perpendicular bone margin (SDY; 12/08/2019) SYU/SYU 12/08/2019 1110 Local . 02 Pathologist provided ICD-10: I96, L98.9, M86.172, L03.032 . 02 CPT . 291610, 151285 Specimen Comment: A courtesy copy of this report has been sent to [phone] Specimen Comment: [phone], Specimen Comment: Report sent to ,DR KELLER / [place] [address] PATHOLOGY RPT PROCEDURE Name: MILES APPLE Room #: 216-P [facility] IN M.R.#: [id number] Admission: 12/01/19 Date of : 38 Discharge: Report #: [id number] Path Case #: [id number] Performed at: 01 [facility] [address] [id number] MD Derrick Hamilton MD Phone: [phone] Performed at: 02 [facility] [address] [id number] MD Calos Vidal MD Phone: [phone]
[2019-12-09 16:30] VITALS: BP 121/69
--- NOTE | 2019-12-09 17:10 | NUR ---
Spoke with patient brother Elise, updated on care and dc planning. Patient has therapy reordered. Will fax evals to [facility] for their review if patient needs can be met at Assisted living. Brother hopes can return to familiar surroundings. [facility] following.
--- NOTE | 2019-12-09 17:59 | NUR ---
ASSUMED CARE OF PT AT SHIFT CHANGE. ASSESSMENTS CHARTED. MEDS GIVEN PER MAY. PT ALERT TO SELF AND SOMETIMES PLACE. PT MORE CALM, LESS IMPULSIVE TODAY. CONTINUES TO BE INCONTINENT, NOT USING URNIAL TODAY. GOOD APPETITE. SX DRESSING CHANGED, INCISION APPEARS WELL APPROXIMATED, NO DRAINAGE. WORKED WITH PT, MAX ASSIST X2. SAT ON EDGE OF BED WITH OT, TOLERATED WELL. WILL CONTINUE TO MONITOR AND FOLLOW POC.
[2019-12-09 19:35] VITALS: BP 111/75
[2019-12-10 04:04] VITALS: BP 124/67
--- NOTE | 2019-12-10 04:45 | NUR ---
PATIENT IS PROGRESSING SLOWLY IN HIS CARE PLAN. VITAL SIGNS STABLE WITH PATIENT HAVING NO COMPLAINTS OF PAIN OR NAUSEA. ORIENTED TO SELF, PATIENT IS PLEASANTLY CONFUSED AND UNABLE TO CALL APPROPRIATELY FOR NEEDS. BREATHING STABLE ON LOW LEVEL OXYGEN EVIDENCED BY ASSESSMENTS AND SPOT OXYGENATION CHECKS. SURGICAL DRESSING REMAINS CLEAN, DRY, AND INTACT. TURNS AND SKIN CARE PROVIDED. PATIENT IS INCONTINENT AT TIMES. NURSE HAS OFFERED HELP WITH URINAL FREQUENTLY THROUGHOUT SHIFT WITH ATTEMPTS SOMETIMES SUCCESSFUL. CONTINUE PLAN OF CARE.
[2019-12-10 07:52] VITALS: BP 133/67
--- NOTE | 2019-12-10 10:47 | HC ---
[facility] [place] [address] [place] [address] CONSULTATION Name: BENJA APPLE Room #: 216-P ADM IN M.R.#: [id number] Admission: 12/01/19 Attend Phys: Too Sorenson MD Discharge: Date of : 38 Report #: [id number] THIS REPORT FOR: cc: Ander Watson MD, David W. MD Althoff, Jeffrey R. MD ~ CC: Ander Sorenson DATE OF SERVICE: 12/02/2019 CHIEF COMPLAINT: Necrosis of the left second toe. HISTORY OF PRESENT ILLNESS: This is an 79-year-old male patient with whom I am familiar from a recent hospitalization in which he was hospitalized on the Behavioral Psych Unit. He had small ulcerations to his left toes and he was noted to have some degree of arterial insufficiency. It was elected to observe and proceed with standard wound care and then consider followup arteriogram. He is now admitted to the hospital; however, with possible infection in the foot with increased necrosis involving the left second toe and I have been asked to see him with regard to ongoing wound care. The patient has significant dementia with behavioral disturbances, not able to provide much information. It seems that he has some pain, although it is a little bit unclear when he was asked. ALLERGIES: No known drug allergies. PAST MEDICAL HISTORY: Positive for history of atrial fibrillation, hypertension, dementia with behavioral disturbance, and peripheral vascular disease. SOCIAL HISTORY: The patient admits to alcohol on special occasions. He is a former smoker. MEDICATIONS: Include Aricept, Lipitor, escitalopram, memantine, metoprolol, enteric-coated aspirin, cyanocobalamin, tamsulosin, and melatonin. FAMILY HISTORY: Unknown. REVIEW OF SYSTEMS: Not obtainable due to the level of dementia. PHYSICAL EXAMINATION: VITAL SIGNS: At this time include temperature of 36.7, pulse 84, respiratory rate 18, and blood pressure 124/72. GENERAL: This is a chronically ill-appearing male patient who appears to be in minimal distress. HEENT: Head normocephalic. Nose and throat are clear. [facility] [address] [place] [address] CONSULTATION Name: BENJA APPLE Room #: 216-P ADM IN M.R.#: [id number] Admission: 12/01/19 Attend Phys: Too Sorenson MD Discharge: Date of : 38 Report #: [id number] NECK: Supple. HEART: Irregular. ABDOMEN: Soft, nontender. EXTREMITIES: Examination of the extremities demonstrates diminished distal pulses. He has a gangrenous left second toe. Has some cellulitis extending from that area. He has multiple traumatic wounds to both lower legs with dry stable crust, eschar and scab, none of which appeared to be infected. CLINICAL IMPRESSION: 1. Atrial fibrillation. 2. Hypertension. 3. Dementia with behavioral disturbances. 4. Moderate protein-calorie malnutrition. RECOMMENDATIONS: At this point in time, we will obtain consultation with Interventional Radiology to see if there are any percutaneous options. Orthopedic Surgery has been contacted. We will recommend topical Betadine paint to all areas of crust, scab, eschar in order to preserve these while further evaluating his vascular status. Medical management of his other medical conditions. He will need ongoing nutritional support. Some of his dementia impairs our ability to provide some of the cares. We will try to work around this as best as possible. I appreciate being asked to see him in consultation. <ELECTRONICALLY SIGNED> By: Drake Washington MD 12/10/19 1047 0855 0946 Drake Washington MD /nt
[2019-12-10 11:00] VITALS: BP 109/54
--- NOTE | 2019-12-10 13:07 | NUR ---
FAXED CLINICAL UPDATE TO [facility] SPOKE WITH SKYLAR IN ADM SHE RECEIVED UPDATE.
[2019-12-10] MEDS ORDERED: METOPROLOL SUCC50 MG PO (14:10)
[2019-12-10] MEDS ORDERED: CARDIZEM CD 18180 M3 PO (14:10)
[2019-12-10] MEDS ORDERED: ENOXAPARIN40 MG/0.1 SUBQ (14:10)
[2019-12-10] MEDS ORDERED: ZOSYN 3.373.375 GM/1 IV (14:10)
[2019-12-10] MEDS ORDERED: ACETAMINOPHEN325 M1 PO (14:10)
[2019-12-10] MEDS ORDERED: MIRALAX17 GM PO (14:10)
--- NOTE | 2019-12-10 14:25 | NUR ---
Patient evaled for 5N. 5N liason sp with [facility] regarding level of care can accept once stable. Patient accepted to 5N with plan transfer today. Sp with Brother ELISE GALLEGOS who is in agreement with plan. He plans to visit Saturday. Sp with Alis in admissions to alert of Elise visiting Saturday they are in agreement.
[2019-12-10 14:59] VITALS: BP 102/49
--- NOTE | 2019-12-10 15:02 | NUR ---
RECEIVED PT'S CARE AROUND 0710; PT. ON BED; RESTING WITH EYES CLOSED; EQUAL CHEST RISING NOTICED; AFIB ON THE MONITOR; DURING AM ASSESSMENT ALERT TO PERSON & PLACE; NO C/O PAIN; AM MEDICATIONS GIVEN; PER ORTHO OK TO APPLIED GAUZE OVER INCISION & PERFORMED DRESSING PRN; WOUND CARE PERFORMED; ABLE TO SIT ON THE CHAIR WITH OT; PER REPORT MAX ASSISTANCE; BACK TO BED WITH PT; WEAK; INCONTINENT OF BM & VOID; SOB WITH EXERTION; D/C IV FLUIDS; BROTHER UPDATE ABOUT PT'S HEALTH & POC; ST. UNDERSTANDING; ASSESSMENT CHARGED; FOLLOWING POC; WILL PASS ON REPORT;
--- NOTE | 2019-12-16 14:49 | HC ---
[facility] [place] [address] CONSULTATION Name: BENJA APPLE Room #: 216-P [facility] IN M.R.#: [id number] Admission: 12/01/19 Attend Phys: Too Sorenson MD Discharge: 12/10/19 Date of : 38 Report #: [id number] THIS REPORT FOR: cc: Ander Watson MD, David W. MD Deardorff, Valerie A. MD ~ CC: Ander Sorenson DATE OF SERVICE: 12/03/2019 REASON FOR CONSULTATION: Left second toe gangrene. HISTORY OF PRESENT ILLNESS: The patient's history and physical are limited secondary to the patient's dementia. He apparently has been agitated and trying to leave. There is a nurse feeding him dinner when I arrive. He has moderate amount of dementia. He was admitted from his facility on the date of admission. He apparently was following with the wound care physician. In the ED, foot was red, swollen. Second toe appeared necrotic on the left. REVIEW OF SYSTEMS: Integumentary, the right lower extremity is bandaged with a wound on the dorsum of the big toe on the right. The left foot also has a large eschar over the dorsum of the big toe. Remainder of the review of systems unable to be obtained due to the patient's dementia. PAST MEDICAL HISTORY: Significant for dementia, AFib, type 2 diabetes. MEDICATIONS: Include divalproex, quetiapine, donepezil, atorvastatin, citalopram, memantine, metoprolol, aspirin, Antiox, tamsulosin, melatonin, silver sulfadiazine, ondansetron. PAST SURGICAL HISTORY: Unknown. SOCIAL HISTORY: Obtained from the charts, former smoker. Alcohol use on special occasions. Ambulatory status is unknown. LABORATORY DATA: Done on 12/03/2019 show white blood cell count 5.8, hemoglobin 10.1, hematocrit 30.4, platelet count 215. Sed rate on 12/01/2019 is elevated at 68. INR on 12/02/2019 was 4.7; 12/03/2019 was 3.4. Chemistry is grossly normal with a low albumin at 2.8, elevated vitamin B12. PHYSICAL EXAMINATION: GENERAL: The patient is alert. He is oriented to person only. He is sitting up in the bed. The nurses feeding him dinner. He is well-developed, well-nourished male in no acute distress. VITAL SIGNS: Most recent vital signs show a temperature of 36.6, heart rate 97, [facility] [address] [place] [address] CONSULTATION Name: BENJA APPLE Room #: 216-P [facility] IN [facility].#: [id number] Admission: 12/01/19 Attend Phys: Too Sorenson MD Discharge: 12/10/19 Date of : 38 Report #: [id number] respiratory rate 14, blood pressure 127/80, pulse oximetry 97% on room air. EXTREMITIES: Examination of his right lower extremity, he has a dorsal wound without significant cellulitis on the first toe. Brisk capillary refill. Sensory exam is questionable to the patient's dementia. He wiggles his toes. Grossly normal strength and stability. Left lower extremity exam second toe is black with appearance of necrosis. The dorsum of the first toe has approximately a 2-cm eschar. He has 1+ dorsalis pedis pulse. He has grossly normal strength and stability. RADIOGRAPHS: Three views of the left foot taken on 12/01/2019 show some diffuse arthrosis, calcification of his arteries. No definite osteomyelitis. IMPRESSION AND PLAN: Left second toe necrosis. It is my understanding that he is undergoing vascular studies tomorrow. He also has a wound over the dorsal aspect of the great toe, most likely another indication of peripheral vascular disease. We will have my [facility] partner operations and maintenance supervisor this weekend. Follow with him and if he requires an amputation, they may take care of that if they so desire. Thank you very much for allowing me to participate in the care of this patient. <ELECTRONICALLY SIGNED> By: Lorena Wills MD 12/16/19 1449 1735 07 Lorena Wills MD /nt
--- NOTE | 2019-12-16 15:11 | HC ---
[facility] [place] [address] CONSULTATION Name: BENJA APPLE Room #: 216-P [facility] IN M.R.#: [id number] Admission: 12/01/19 Attend Phys: Too Sorenson MD Discharge: 12/10/19 Date of : 38 Report #: [id number] THIS REPORT FOR: cc: Ander Watson MD, David W. MD Smithson, David G. MD ~ CC: Ander Sorenson DATE OF SERVICE: 12/07/2019 HISTORY OF PRESENT ILLNESS: The patient is an 79-year-old white male with a left second toe gangrene with necrosis as well as cellulitis. He has now undergone left second toe amputation by Dr. Ochoa on 12/07/2019. He is being treated for bilateral lower extremity cellulitis. We are seeing him in rehabilitation medicine consultation. PAST MEDICAL HISTORY: Includes dementia with behaviors and a [facility]. History of atrial fibrillation with rapid ventricular rate, hypertension, peripheral arterial disease. MEDICATIONS: Please see the full medication listing. ALLERGIES: No known drug allergies. SOCIAL HISTORY: He lives at [facility] in Assisted Living Facility. Used a wheelchair or a walker. The therapist contacted the facility and they noted that he mostly was wheelchair bound and has assist with mobility. HABITS: Former smoker, greater than 1 year ago quitting; alcohol only on special occasions. REVIEW OF SYSTEMS: No current complaints of chest pain, shortness of breath or abdominal discomfort. PHYSICAL EXAMINATION: GENERAL: An 79-year-old white male who recently returned from the surgical suite post left second toe amputation. NEUROLOGIC: He is alert. He could not tell me the place, but he did know the year. He was incorrect regarding the season. He knew he had surgery on his left toe. He was not in any distress. HEENT: Facies appeared symmetric. EXTREMITIES: Functional range of motion of the upper extremity, strength is grade 4-/5 to 3+/5. DTRs are trace to 1. Right lower extremity, no focal calf swelling, functional range of motion, strength is probably a grade 3+/5. Left lower extremity, has the left foot dressed. Left large toe and remaining toes [facility] [address] [place] [address] CONSULTATION Name: BENJA APPLE Room #: 216-P [facility] IN .R.#: [id number] Admission: 12/01/19 Attend Phys: Too Sorenson MD Discharge: 12/10/19 Date of : 38 Report #: [id number] are exposed. He can move the proximal left lower extremity, but seemed to have difficulty understanding when I asked him to try to wiggle his toes a little bit. He has been mod assist, trying to come to stand prior to the surgery. ASSESSMENT: An 79-year-old white male with the following problems: 1. Left second toe gangrene with necrosis, now status post left second toe amputation on 12/07/[address] Merna. 2. Bilateral lower extremity cellulitis. 3. History of dementia with behaviors in the past. 4. Atrial fibrillation with rapid ventricular rate. 5. Peripheral arterial disease. PLAN: The patient does not meet diagnostic criteria for an acute [address] [place] [address] inpatient rehabilitation stay. Would agree with considering other options as he further medically stabilizes. <ELECTRONICALLY SIGNED> By: Ander Magana MD 12/16/19 1511 1314 0042 Ander Magana MD /PMT
== END 2019-12-10 15:47 | DRG 255 ==
LOC: ER 15:40 → 2N 17:56 → 4S 17:56 → EROBS 17:56 → 4S 20:19 → 2N 12-04 15:27
PROVIDERS: Emergency Medicine; Emergency Medicine Emergency Medical Services; Nurse Practitioner; Nurse Practitioner Family; ADMIT Hospitalist; ATTEND Hospitalist
DX: E11.52 Type 2 diabetes mellitus with diabetic peripheral angiopathy with gangrene (principal); G92 Toxic encephalopathy; I96 Gangrene, not elsewhere classified; I48.20 Chronic atrial fibrillation, unspecified; I48.21 Permanent atrial fibrillation; F03.91 Unspecified dementia, unspecified severity, with behavioral disturbance; E44.0 Moderate protein-calorie malnutrition; L03.115 Cellulitis of right lower limb; D68.9 Coagulation defect, unspecified; L03.032 Cellulitis of left toe; I10 Essential (primary) hypertension; E78.5 Hyperlipidemia, unspecified; Z66 Do not resuscitate; N40.0 Benign prostatic hyperplasia without lower urinary tract symptoms; G47.00 Insomnia, unspecified; S40.922A Unspecified superficial injury of left upper arm, initial encounter; I87.8 Other specified disorders of veins; I35.0 Nonrheumatic aortic (valve) stenosis; S80.922A Unspecified superficial injury of left lower leg, initial encounter; S80.921A Unspecified superficial injury of right lower leg, initial encounter; Z20.828 Contact with and (suspected) exposure to other viral communicable diseases; I70.0 Atherosclerosis of aorta; I70.203 Unspecified atherosclerosis of native arteries of extremities, bilateral legs; X58.XXXA Exposure to other specified factors, initial encounter; I25.2 Old myocardial infarction; Z79.899 Other long term (current) drug therapy; Z79.82 Long term (current) use of aspirin; Z79.84 Long term (current) use of oral hypoglycemic drugs; Z87.891 Personal history of nicotine dependence; Z68.26 Body mass index [BMI] 26.0-26.9, adult; Y93.89 Activity, other specified; Y92.89 Other specified places as the place of occurrence of the external cause; Y99.8 Other external cause status
CPT/HCPCS: 10081; 10102; 50010; 50101; 50386; 56527; 57091; 62110; 62900; 70005

== ENCOUNTER 2019-12-10 12:35 | Inpatient (IN) | payer OTHER ==
[~2019-12-10] VITALS: Ht 193 cm; Wt 86.9 kg
--- NOTE | ~2019-12-10 | PLAN ---
[facility] [place] [place] [address] REHAB UNIT PLAN OF CARE Name: BENJA APPLE Room #: 513-P ADM IN M.R.#: [id number] Admission: 12/10/19 Attend Phys: Ander Magana MD Discharge: Date of : 38 Report #: [id number] THIS REPORT FOR: //name// CC: Ander Magana DATE OF SERVICE: 12/12/2019 PROGRESS NOTE AND OVERALL PLAN OF CARE SUBJECTIVE: The patient is seen back in followup. Temperature 36.6, pulse 76, respirations 18, blood pressure 138/65. He has been pleasant. Left foot utilizing ortho shoe. He has been on 2 liters nasal cannula. He has been working with therapies with sit to stand max assist, gait mod assist 35 feet front-wheeled walker. In occupational therapy, lower body dressing is dependent, upper body is min assist. In speech therapy, he has severe cognitive deficits and severe memory deficits. ASSESSMENT: 1. Toxic encephalopathy. 2. Medical complexity with generalized debilitation. 3. 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 4. Bilateral lower extremity cellulitis. 5. Atrial fibrillation. 6. Peripheral arterial disease. 7. Severe aortic stenosis. 8. Prior history of dementia with behaviors history. PLAN: The overall plan of care is based on the preadmission screen, post-admission physician evaluation, and information garnered from therapy assessments. 1. Estimated length of stay is probably at least the next 10 days to 2 weeks and likely longer depending upon how he does. 2. Medical prognosis is reasonably good. 3. Anticipated interventions include interdisciplinary acute inpatient rehabilitation. 4. Anticipated functional outcomes would be for the patient to improve as far as basic transfers and mobility issues, ADLs as well as cognition, so that he hopefully can get back to the prior functional level where he can go back to his assisted living. 5. Discharge destination would be back to his assisted living facility memory care. 6. Expected therapy by discipline includes PT, OT and Speech 1 hour per day [address] [address] REHAB UNIT PLAN OF CARE Name: BENJA APPLE Room #: 513-P [facility] IN .R.#: [id number] Admission: 12/10/19 Attend Phys: Ander Magana MD Discharge: Date of : 38 Report #: [id number] each 5 days a week throughout the duration of the acute inpatient rehabilitation stay. By: 1135 16 Ander Magana MD /nt
[2019-12-10] MEDS ORDERED: ACETAMINOPHEN325 M1 PO (14:10)
[2019-12-10] MEDS ORDERED: ZOSYN 3.373.375 GM/1 IV (14:10)
[2019-12-10] MEDS ORDERED: ENOXAPARIN40 MG/0.1 SUBQ (14:10)
[2019-12-10] MEDS ORDERED: METOPROLOL SUCC50 MG PO (14:10)
[2019-12-10] MEDS ORDERED: MIRALAX17 GM PO (14:10)
[2019-12-10] MEDS ORDERED: CARDIZEM CD 18180 M3 PO (14:10)
--- NOTE | 2019-12-10 17:01 | NUR ---
ASSUMED CARE OF PT AT 1600. RECEIVED REPORT FROM NATALIE PRIOR TO TRANSFER TO UNIT. PT BROUGHT TO UNIT IN BED. ADMISSION HEIGHT, WEIGHT, AND VITAL SIGNS ARE STABLE. PT IS ALERT AND ORIENTED TO PERSON ONLY. PT IS IMPULSIVE AND FORGETS INSTRUCTIONS WITHIN MINUTES. LEFT SECOND TOE AMPUTATION, DRESSING C/D/I. MULTIPLE ULCERS TO BILATERAL TOES. LEFT ELBOW HEALING WOUND. PICTURES OBTAINED. 2L O2 VIA NC. PT INCONTINENT OF URINE DURING ADMISSION ASSSESSMENT. LEFT FOREARM IV ACCESS. PT POOR HISTORIAN AND UNABLE TO FULLY PARTICIPATE IN ASSESSMENT. BROTHER NOTIFIED OF ROOM CHANGE. CONSULTS CONTACTED. ADMISSION CONSULTS NOT SIGNED AT THIS TIME DUE TO COGNITION. FALL PRECAUTIONS IN PLACE AND NURSING WILL CONTINUE TO MONITOR.
[2019-12-10 19:08] VITALS: BP 120/68
--- NOTE | 2019-12-11 02:34 | NUR ---
ASSUMED PT CARE AROUND 1930. AXOX1. CONFUSED AND IMPULSIVE. HOWEVER, EVERY PLESANT MOOD AND EASILY REDIRECTED. VSS. NO S/S ACUTE DISTRESS NOTED OR REPORTED AT THIS TIME. WILL CONT TO MONITOR FOR ANY CHANGES IN CONDITION.
[2019-12-11 05:27] LABS: HEMATOCRIT 28.9 % (42.0-52.0); HEMOGLOBIN 9.7 gm/dL (14.0-18.0); MCH 30.1 pg (26.0-34.0); MCHC 33.5 g/dL (28.0-37.0); MCV 89.7 fL (80.0-100.0); RBC 3.22 mil/uL (4.50-6.00); WBC 5.3 thou/uL (4.0-11.0)
[2019-12-11 05:32] LABS: CALCIUM 8.8 mg/dL (8.5-10.1); CREATININE 0.7 mg/dL (0.7-1.3); POTASSIUM 3.6 mmol/L (3.5-5.1)
[2019-12-11 06:04] LABS: FOLIC ACID 17.1 ng/mL (8.6-58.9)
[2019-12-11 08:00] VITALS: BP 123/67
--- NOTE | 2019-12-11 10:30 | NUR ---
cm tired x 2 calling room and then going by his room on rehab. he out in gym working with therapy. will cont following as needed for dc needs. chart review. pt from [facility]. has wheel chair. he had [facility] stay in nov 2019. tried calling rosalia brother and number doesnt work. will cont following as needed for dc needs.
--- NOTE | 2019-12-11 15:03 | NUR ---
ASSUMED CARE OF PT AT 0700. PT IS ALERT AND ORIENTED TO PERSON ONLY. PT DENIES PAIN AND PARTICIPATED IN THERAPIES. PT IS IMPULSIVE AND MAKES MULTIPLE ATTEMPTS TO SELF TRANSFER AND AMBULATE. FOR PT SAFETY PT MOVED TO ROOM NEAR NURSES STATION. FREQUENT VISUAL CHECKS BY STAFF IN PLACE. PT IS INCONTINENT OF BLADDER. FALL PRECAUTIONS IN PLACE AND NURSING WILL CONTINUE TO MONITOR.
[2019-12-11 19:47] VITALS: BP 138/65
[2019-12-12 00:06] LABS: GLYCOHEMOGLOBIN (HGB A1C) 5.9 % (4.8-5.6)
[2019-12-12 08:00] VITALS: BP 138/65
--- NOTE | 2019-12-12 10:54 | NUR ---
ASSUMED CARE AT 0700. PATIENT IS ALERT AND ORIENTED X2. PATIENT LANGSTON, DIABETES EDUCATOR ARE EQUAL. LUNGS ARE DEMINISHED. ABD IS SOFT WITH BSX4. LEFT FOOT HAS ORTHO SHOE ON. PATIENT HAS 02 AT 2L PER N/C. PATIENT HAS S.L. IN HIS LEFT F.A. UP IN THE CHAIR FOR BREAKFAST. LEFT FOOT DRESSING CHANGED. FALL AND SAFETY PROTOCOLS IN PLACE. DENIES PAIN AT THIS TIME. UP IWTH ASSIST OF 2 PEOPLE TO THE BR AND GAIT BELT. CONTINUES TO PROGRESS SLOWLY TOWARDS D/C GOALS. WILL CONTINUE TO MONITER.
[2019-12-12 19:53] VITALS: BP 106/60
[2019-12-13 08:17] VITALS: BP 127/83
--- NOTE | 2019-12-13 10:17 | NUR ---
ASSUMED CARE AT 0700. PATIENT IS ALERT AND ORIENTED X4. PATIENT LANGSTON'S, MANAGER OF MAINTENANCE ARE EQUAL. LUNGS ARE CLEAR . ABD IS SOFT WITH BSX4. PATIENT WAS INCONTINENT OF URINE. IN BED AND ON THE FLOOR. UP IN THE W/C FOR BREAKFAST. S.L. IN HIS LEFT FORARM IS PATIENT AND INTACT. FALL AND SAFETY PROTOCOLS IN PLACE. DENIES PAIN AT THIS TIME. CONTINUE TO PROGRESS SLOWLY TOWARDS D/C GOALS. DRESSING CHANGES DONE TO BOTH FEET ORDERED. WILL CONTINUE TO MONITER.
[2019-12-13 19:41] VITALS: BP 118/60
--- NOTE | 2019-12-14 05:05 | NUR ---
Patient is alert and oriented x3 when fully awake, slightly hard of hearing, with heart murmurs when ascultated. His breathing and heart rate are within normal ranges. All other vitals are normal and he shows no signs of cyanosis. Patient statrted the shift on room air (weaned off nasal cannula). By midnight he was unable to maintain oxygen saturations above 89 on room air and was placed back on oxygen. Oxygen saturations did not change on 1L and 2L respectively, so patient was maintained on 3L for the rest of the shift.
[2019-12-14 08:00] VITALS: BP 114/59
--- NOTE | 2019-12-14 13:37 | NUR ---
late entry 12/09: patient was incontinent and continent of bowel and bladder this date.
--- NOTE | 2019-12-14 14:23 | NUR ---
ASSUMED CARE AT 0700. PT HAD AN UNEVENTFUL NIGHT AND SLEPT FAIRLY GOOD. DENIES ANY PAIN. UP WITH MODERATE AMOUNT OF ASSISTANCE TO THE BATHROOM. APPETITE GOOD AND ATE 100% OF HIS MEALS. PT IS PUT ON ROOM AIR AND SAT ABOVE 96%. HAD A PORTABLE CXR TODAY. DRESSING TO HIS WOUND DONE AND DOCUMENTED. PT IS COOPERATIVE AND CALM AND EASILY REORIENTATED. PARTICIPATING AND PROGRESSING IN THERAPY. WILL CONT TO MONITOR.
--- NOTE | 2019-12-14 16:26 | NUR ---
I have reviewed the documentation by RAMANA HUFF from 12/14/19 to 12/14/19 and I concur with it. PANDA GEORGE, PT, DPT
[2019-12-14 20:14] VITALS: BP 138/69
--- NOTE | 2019-12-15 04:13 | NUR ---
assumed care approx 1900 evening 12/13. pt lying in bed at change of shift somewhat impulsive trying to climb out of bed when needing to void. pt assisted with urinal several times in night. pt able to void in urinal. pt took hs meds with water tolerating well. pt close to nurses station for easier observation. bed alarm on and call light in reach. will continue to monitor.
[2019-12-15 07:30] VITALS: BP 146/85
--- NOTE | 2019-12-15 10:07 | HC ---
[facility] [place] [place] [address] CONSULTATION Name: BENJA APPLE Room #: 513-P ADM IN M.R.#: [id number] Admission: 12/10/19 Attend Phys: Ander Magana MD Discharge: Date of : 38 Report #: [id number] THIS REPORT FOR: cc: Ander Watson MD, David W. MD Deutch, Neal B. PhD ~ CC: Ander Magana DATE OF SERVICE: 12/12/2019 BEHAVIORAL STATUS EXAM ATTENDING PHYSICIAN: Ander Magana MD BOTTOM POLISHER: Benigno Moore, PhD CLINICAL PRESENTATION: The patient today is an 79-year-old male admitted to the rehabilitation unit at [facility] for a comprehensive inpatient rehabilitation program. He was initially seen at the [facility] with a left foot wound that was diagnosed with gangrene of the left second toe and cellulitis, bilateral lower extremities. He underwent a left second toe amputation on 12/07/2019. The patient has a premorbid dementia. During his initial hospitalization his diagnosis included encephalopathy superimposed on longstanding dementia. The patient was confused and needed to be restrained, which gradually improved. He carries an assessment on the rehab unit that included a toxic metabolic encephalopathy, medical complexity with generalized debilitation, left second toe gangrene with necrosis, status post left second toe amputation, weightbearing as tolerated, bilateral lower extremity cellulitis, atrial fibrillation, peripheral artery disease, severe aortic stenosis and dementia and behavior disorder by history A complete description of his medical condition and history can be found in his medical record. Neuropsychological consultation was requested to provide assistance in the assessment of cognitive and emotional status and to provide recommendations and services. Prior to this most recent medical event, he was living in an assisted living Memory Care Facility. 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 His brother reported to have had a stroke about 3 years ago, which contributed to his severe decline in cognitive functioning. He has 7 siblings and one brother is his current DPOA. The patient has required assistance with instrumental and basic activities of daily living. The patient was in his Senior Behavioral Unit in the hospital in [address] [address] CONSULTATION Name: BENJA APPLE Room #: 513-P [facility] IN [facility].#: [id number] Admission: 12/10/19 Attend Phys: Ander Magana MD Discharge: Date of : 38 Report #: [id number] November because of decline in behavioral and cognitive functioning. TECHNIQUES UTILIZED: Clinical interview, review of medical records, staff consultation and behavioral observation, mini mental status exam 2 standard version, family interview -- brother. EXAMINATION FINDINGS: The patient was alert and cooperative with the assessment. He was unable to describe the reason for his hospitalization. The patient does report accurately his having been employed as a waste chopper and having obtained a Ph.D. in theology. He describes having anxiety and difficulty with sleep. He does not report problems with appetite or depressed mood. Difficulty with memory is acknowledged. He does not report auditory or visual hallucinations. There is no evidence of aphasia. His performance on the MMSE 2 brief version is extremely low with a raw score of 4/16. He was 3/3 for initial registration, 1/5 for orientation to time, 0/[address] and 0/3 for immediate recall of 3 items after a brief time delay and distraction. The patient was tangential and having difficulty in carrying out instructions. DIAGNOSTIC IMPRESSION: Major neurocognitive disorder (dementia), possibly due to Alzheimer's and Vascular disease, with intermittent behavioral disorder -- likely in the moderate range with severe cognitive deficits. RECOMMENDATIONS: The patient will continue to require 24-hour care and assistance in the management of medication, finances and nutrition. The Memory Care unit will likely be satisfactory in meeting his needs for environmental support and treatment. Continued psychiatric management and medication for behavior disorder. Thank you very much for allowing me to provide the consultation on this patient. <ELECTRONICALLY SIGNED> By: Benigno Moore, PhD 12/15/19 [phone] Benigno Moore, PhD /nt
--- NOTE | 2019-12-15 12:51 | NUR ---
team meeting, reccommendation: dc 12/24 to [facility].
--- NOTE | 2019-12-15 16:18 | NUR ---
ASSUMED CARE AT 0700. PT HAD AN UNEVENTFUL NIGHT AND SLEPT FAIRLY WELL. STILL IMPULSIVE AND GETS UP FREQUENTLY TO VOID BOTH CONTINENT AND INCONTINENCE. URINE DOES NOT HAVE AN ODOR AND IS CLEAR. PT DENIES ANY BLADDER SPASM OR PAIN. NEEDS FREQUENT REORIENTATION. DRESSING TO LEFT TOE DONE. PROGRESSING TOWARDS GOAL AND PLAN FOR DISCHARGE ON 12/24 TO MEMORY CARE AT [facility].
[2019-12-15 18:55] VITALS: BP 114/60
--- NOTE | 2019-12-16 03:08 | NUR ---
Assumed care of patient this pm shift. Patient in good spirits, pleasantly confused. Patient is alert and oriented to person and place. Patient takes medications whole and is adherent with scheduled meds. Patient has been up frequently with urgency to urinate mostly making very small amounts. Patients assessment shows no signs of acute distress. Vital signs stable. Patient ambulates with a walker and gait belt x1 assistance. Patient has slept intermittently through the night. We will continue to monitor per hospital policy.
[2019-12-16 06:22] LABS: HEMATOCRIT 31.1 % (42.0-52.0); HEMOGLOBIN 10.1 gm/dL (14.0-18.0); MCHC 32.4 g/dL (28.0-37.0); MCV 89.4 fL (80.0-100.0); PLATELET COUNT 161 thou/uL (150-400); RBC 3.48 mil/uL (4.50-6.00); RDW 16.1 % (10.5-14.5); WBC 3.9 thou/uL (4.0-11.0)
[2019-12-16 06:54] LABS: CALCIUM 9.3 mg/dL (8.5-10.1); CREATININE 0.9 mg/dL (0.7-1.3); MAGNESIUM 2.1 mg/dL (1.8-2.4)
[2019-12-16 08:15] VITALS: BP 120/61
[2019-12-16 10:33] LABS: ABSOLUTE NEUTROPHILS 2.7 thou/uL (1.4-8.2); ATYPICAL LYMPHS 1 %
[2019-12-16 10:40] LABS: ANISOCYTOSIS 1+; POIKILOCYTOSIS SLIGHT
--- NOTE | 2019-12-16 10:55 | NUR ---
ASSUMED CARE AT 0700. PATIENT IS ALERT AND ORIENTED X1. PATIENT LANGSTON'S, DIRECTOR OF REVENUE CYCLE MANAGEMENT ARE EQUAL. LUNGS ARE CLEAR. ABD IS SOFT WITH BSX4. UP TO THE BATHROOM WITH MAX ASSIST OF 1 STAFF AND GAIT BELT. UP IN THE W/C FOR MEALS. FALL AND SAFETY PROTOCOLS IN PLACE. DENIES Pain at this time. DRESSING CHANGED TO LEFT FOOT. PATIENT HAS S.L. IN HIS LEFT FORARM. WILL CONTINUE TO MONITER.
--- NOTE | 2019-12-16 13:52 | NUR ---
cm notified by bedside nurse that ID MD possible 2 week iv abx. cm called [facility] and left message to see if they can do iv abx?. will cont following as needed for dc needs. do not do them in [place], not sure about [facility].
--- NOTE | 2019-12-16 15:13 | H ---
[facility] [place] [address] HISTORY AND PHYSICAL Name: BENJA APPLE Room #: 513-P [facility] IN M.R.#: [id number] Admission: 12/10/19 Attend Phys: Ander Magana MD Discharge: Date of : 38 Report #: [id number] THIS REPORT FOR: cc: Ander Watson MD, David W. MD Smithson, David G. MD ~ CC: Ander Magana DATE OF SERVICE: 12/10/2019 HISTORY AND PHYSICAL/POST ADMISSION PHYSICIAN EVALUATION HISTORY OF PRESENT ILLNESS: The patient is admitted for acute in-hospital inpatient rehabilitation. Please see my prior consult note dictation. Please see the history and physical documentation. Agree with that which is documented. The patient originally presented to [facility] on 12/01/2019 with worsening left foot wound and was diagnosed with gangrene of the left second toe and cellulitis of bilateral lower extremities. He has been followed closely by ID, Wound Care, Cardiology given IV antibiotics and local wound care. Arterial Doppler found occlusion of the posterior tibial artery. 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 On 12/07/2019, underwent left second toe amputation by Orthopedics. He has premorbid dementia and has had an encephalopathy superimposed upon this. He was more confused, was needing to be restrained. He has gradually improved some of this regard and it was felt that he was ready for transfer for acute in-hospital inpatient rehabilitation. As far as prior medical history, allergies, habits, and social history please see the above. He has been primarily wheelchair bound, living in an assisted living facility. HABITS: Prior history of tobacco abuse, quit 12 years ago. MEDICATIONS: Please see the full MAR. REVIEW OF SYSTEMS: No current chest pain, shortness of breath or abdominal discomfort. Please see the full review of systems as noted. PHYSICAL EXAMINATION: GENERAL: The patient was seen during lunchtime. He was alert and pleasant. VITAL SIGNS: Temperature 97.5, pulse 77, respirations 16, blood pressure 120/68. NEUROLOGIC: There is a definite delay in his responses, but he can follow basic 1 step commands. He has poor insight and decreased memory. [address] [address] HISTORY AND PHYSICAL Name: BENJA APPLE Room #: 513-P [facility] IN M.R.#: [id number] Admission: 12/10/19 Attend Phys: Ander Magana MD Discharge: Date of : 38 Report #: [id number] HEENT: Otherwise appeared benign. Facies are symmetric. CHEST: Sounded clear to auscultation. CARDIOVASCULAR: Regular rate and rhythm. ABDOMEN: Bowel sounds positive, nontender. GENITOURINARY AND RECTAL: Deferred. EXTREMITIES: He has functional range of motion of both upper extremities. Strength is grade 4- to 3+/5. Lower extremities at least a grade 3+/5. He has dressing on bilateral feet. He has venous stasis changes that are noted. Negative Homans. Trace distal edema. He is needing max assist for sit to stand and is taking a couple of steps with a walker. ASSESSMENT: This is an 79-year-old white male with the following problems: 1. Toxic metabolic encephalopathy. 2. Medical complexity with generalized debilitation. 3. 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 4. Bilateral lower extremity cellulitis. 5. Atrial fibrillation. 6. Peripheral arterial disease. 7. Severe aortic stenosis. 8. Dementia with behaviors history. PLAN: The patient has been admitted for acute in-hospital inpatient rehabilitation. From a postadmission physician evaluation perspective, there are no relevant changes since the preadmission screening. Please see the above review of prior and current medical and functional conditions and comorbidities. Please see the patient's previous and current functional status. As far as risk of complications, the patient has multiple medical comorbidities as noted above. Initial plan of care involves the interdisciplinary acute inpatient rehabilitation program. Measurable functional goals would be for the patient to become modified independent with transfers, mobility, ADLs, so that he can hopefully return back to his prior living situation. Prognosis is reasonably good with estimated length of stay probably at least 1-2 weeks. Potential barriers would include his multiple medical comorbidities and decreased functional status. The patient meets diagnostic criteria for an acute in-hospital inpatient rehabilitation stay. He meets the medical necessity criteria. We will have the art sales consultant physicians continue to follow. He does have the tolerance for therapies and has appropriate discharge goals back to the home setting. Again please see the full history and physical documentation. <ELECTRONICALLY SIGNED> By: Ander Magana MD 12/16/19 1513 1315 1329 Ander Magana MD /nt
--- NOTE | 2019-12-16 15:34 | NUR ---
I have reviewed the documentation by RAMANA HUFF from 12/16/19 to 12/16/19 and I concur with it. PANDA GEORGE, PT, DPT
--- NOTE | 2019-12-16 18:36 | NUR ---
1300 DR. FRIED HERE TO SEE PATIENT. PATENT WILL BE ON IV ABT FOR TWO MORE WEEKS. CM NOTIFEID. WILL CONTINUE TO MONITER.
[2019-12-16 19:59] VITALS: BP 106/68
--- NOTE | 2019-12-17 02:38 | NUR ---
assumed care approx 1900 evening 12/15.pt lying in bed with head of bed elevated and pt impulsive at times sitting up on edge of bed. pt reminded multiple times to use call light. pt verbalized understanding yet continues to not use call light.pt assisted with urinal and voiding several times in the night. pt took hs meds with water tolerating well. bed alarm on and call light in reach. will continue to monitor.
[2019-12-17 08:00] VITALS: BP 127/61
--- NOTE | 2019-12-17 11:07 | NUR ---
ASSUMED CARE AT 0700. PATIENT IS ALERT AND ORIENTED TO SELF. PATIENT LANGSTON'S, FILM TOUCH UP INSPECTOR ARE EQUAL. LUNGS ARE CLEAR. ABD IS SOFT WITH BSX4. PATIENT IS UP WITH WALKER TO BATHROOM . UP IN W/C FOR MEALS. FALL AND SAFETY PROTOCOLS IN PLACE. DENIES PAIN. CONTINUES TO PROGRESS SLOWLY TOWARDS D/C GOALS. PATIENT HAS S.L. IN HIS LEFT FORARM. IV SITE WITHOUT REDNESS OR SWELLING. WILL CONTINUE TO MONITER.
--- NOTE | 2019-12-17 13:47 | NUR ---
cm called [facility], spoke with nurse, rt iv abx. [facility] nurse stated oh no we are not able to do iv medication. head baker spoke with brother rosalia and he agrees with dcp and ed staying here for rehab and iv abx.
--- NOTE | 2019-12-17 16:07 | NUR ---
I have reviewed the documentation by RAMANA HUFF from 12/17/19 to 12/17/19 and I concur with it. PANDA GEORGE, PT, DPT
[2019-12-17 19:37] VITALS: BP 137/60
--- NOTE | 2019-12-18 01:40 | NUR ---
ASSUMED CARE OF PT AT 1915 ON 12/17/19. PT IS A&O TO SELF. IS CONFUSED & IMPULSIVES. DOES NOT CALL OUT FOR ASSISTANCE. IS UP WITH 1 ASSIST, GB, WALKER. FALL PRECAUTIONS & HOURLY ROUNDING CONTINUED THIS SHIFT. LABS & VITALS REVIWED. PT HAS WOUND ON LEFT FOOT. DRSG INTACT. PT IS CURRENTLY SLEEPING. ROOM IS ACROSS FROM NURSE STATION. CALL LIGHT WITHIN REACH. WILL CONTINUE TO MONITOR.
[2019-12-18 07:22] VITALS: BP 144/77
--- NOTE | 2019-12-18 16:18 | NUR ---
I have reviewed the documentation by RAMANA HUFF from 12/18/19 to 12/18/19 and I concur with it. PANDA GEORGE, PT, DPT
[2019-12-18 19:00] VITALS: BP 135/54
--- NOTE | 2019-12-18 19:04 | NUR ---
ASSUMED CARE OF PT AT 0700. PT IS ALERT AND ORIENTED TO PERSON ONLY. PT IS IMPULSIVE AND ATTEMPTS TO SELF TRANSFER FREQUENTLY, PULLS ON CORDS, AND FORGETS SAFETY MEASURES FREQUENTLY. WOUNDS TO BLE FEET CHANGED PER ORDERS. VITAL SIGNS ARE STABLE. PT DENIES PAIN AND PARTICIPATED IN SCHEDULED THERAPIES. FREQUENT INCONTINENCE OF URINE NOTED THIS SHIFT. FALL PRECAUTIONS IN PLACE AND NURSING WILL CONTINUE TO MONITOR.
--- NOTE | 2019-12-19 01:00 | NUR ---
ASSUMED PT CARE AT 1900.PT DENIED PAIN SO FAR.PT IS VERY IMPULSIVE.PT NOT COMLAINT WITH FALL PRECAUTIONS.PT NEEDS CONSTANT REMINDER TO USE CALL LIGHT FOR ASSISTANCE.VARINDER TO Lamont ALMONTE AND HIS Lamont ALTMAN C/D/I.PT CONT ON IV ABX ORDERED.PT SLEEPING ON HIS BED AT THIS TIME,BREATHING NORMAL AND NON LABORED. FALL PRECAUTIONS IN PLACE.CALL LIGHT WITHIN REACH.
[2019-12-19 08:00] VITALS: BP 134/79
--- NOTE | 2019-12-19 17:09 | NUR ---
ASSUMED CARE OF PT AT 0700. PT IS A&OX4 AND VITAL SIGNS ARE STABLE. PT DENIES PAIN AND PARTICIPATED IN SCHEDULED THERAPIES. WOUNDS TO BILATERAL FEET CHANGED PER ORDERS. IV TO LEFT FA INFILTRATED AND WAS REPLACED WITH 22G TO LEFT AC. PT IMPULSIVE AND DOES NOT CALL FOR ASSISTANCE WITH TRANSFERS. FALL PRECAUTIONS IN PLACE AND NURSING WILL CONTINUE TO MONITOR.
--- NOTE | 2019-12-19 17:25 | NUR ---
ASSUMED CARE OF PT AT 0700. PT IS A&OX1 AND VITAL SIGNS ARE STABLE. PT DENIES PAIN AND PARTICIPATED IN SCHEDULED THERAPIES. WOUNDS TO BILATERAL FEET CHANGED PER ORDERS. IV TO LEFT FA INFILTRATED AND WAS REPLACED WITH 22G TO LEFT AC. PT IMPULSIVE AND DOES NOT CALL FOR ASSISTANCE WITH TRANSFERS. FALL PRECAUTIONS IN PLACE AND NURSING WILL CONTINUE TO MONITOR.
--- NOTE | 2019-12-20 00:57 | NUR ---
ASSUMED PT CARE AT AROUND 1915 HRS. PT IS ALERT TO SELF. HE HAS BEEN RESTLESS AND IMPULSIVE. EVEN AFTER TAKING HIS MEDS, PT STILL UNABLE TO SLEEP. HE EITHER GETS UP TO USE URINAL OR TRIES TO SIT UP BECAUSE HE CANT GO TO SLEEP. PT WITH URINARY FREQUENCY.DRSG TO LEFT FOOT IS INTACT.GIVEN ABTS. AFEBRILE. ON ROOM AIR. VSS.. FALL PREC IN PLACE. WILL CONTINUE WITH POC TILL EOS.
[2019-12-20 07:00] VITALS: BP 131/66
--- NOTE | 2019-12-20 18:17 | NUR ---
ASSUMED CARE OF PT AT 0700. PT IS A&OX1 AND IMPULSIVE, VITAL SIGNS ARE STABLE. PT DENIES PAIN AND PARTICIPATED IN SCHEDULED THERAPIES. WOUNDS TO BILATERAL FEET CHANGED PER ORDERS. PT PICKING AT SCABS ON LEGS AND ARMS UNTIL THEY BLEED. BOARDER FOAM DRESSINGS APPLIED TO THE AREAS AND PT DISCOURAGED FROM PICKING AT SKIN. PT UP MANY 4X EVERY HOUR, AND FAILS TO CALL FOR ANY ASSISTANCE. PT PULLING AT IV SITE, BUT REMAINS INTACT. FALL PRECAUTIONS IN PLACE. NURSE SITTING AT NURSES STATIONS OFTEN IS POSSIBLE DUE TO IMPULSIVITY. NURSING WILL CONTINUE TO MONITOR.
[2019-12-20 19:40] VITALS: BP 120/67
--- NOTE | 2019-12-20 21:47 | NUR ---
ASSUMED CARE OF PT AT 1915. PT IS ORIENTED TO SELF. IS CONFUSED & IMPULSIVE. IS STABLE AT THIS CURRENT MOMENT. IS CURRENTLY ASLEEP. CALL LIGHT WITHIN REACH. HOWEVER, PT DOES NOT CALL OUT APPROPRIATELY. IS ACROSS FROM NURSE'S STATION. IS UP WITH 1 ASSIST, GB, WALKER. FALL PRECAUTIONS & HOURLY ROUNDING CONTINUED THIS SHIFT. PT DENIES PAIN. LEFT FOOT DRSG WAS INTACT, BUT PT REMOVED. THIS NURSE HAS MADE SEVERAL ATTEMPTS TO REDRESS, BUT PT REFUSES. PT STATED, "YOU'RE GOING TO KEEP ME UP". WILL ATTEMPT TO REDRESS IN THE MORNING. PT WAS EDUCATED REGARDING POSSIBLE INFECTION & DOCTOR'S ORDERS. PT IS ABLE TO TURN SELF IN BED. HEELS OFF LOADED. HAS URNIARY FREQUENCY. IS UP APPROX EVERY 45 MINUTES TO 1 HR TO VOID. WILL CONTINUE TO MONITOR.
[2019-12-21 06:28] LABS: HEMATOCRIT 32.2 % (42.0-52.0); HEMOGLOBIN 10.7 gm/dL (14.0-18.0); MCH 29.5 pg (26.0-34.0); MCHC 33.3 g/dL (28.0-37.0); MCV 88.8 fL (80.0-100.0); RBC 3.63 mil/uL (4.50-6.00); RDW 16.8 % (10.5-14.5); WBC 4.3 thou/uL (4.0-11.0)
[2019-12-21 06:36] LABS: CALCIUM 9.3 mg/dL (8.5-10.1); CREATININE 0.7 mg/dL (0.7-1.3)
[2019-12-21 07:45] VITALS: BP 124/64
--- NOTE | 2019-12-21 14:41 | NUR ---
ASSUMED CARES AT 0700. PT CONFUSED, ORIENTED TO PERSON ONLY, IMPULSIVE. DENIES PAIN AT THIS TIME. VITALS REMAIN STABLE. WOUNDCARE TO LEFT 2ND AND 3RD TOES COMPLETED PER ORDER. SKIN TEARS ON LEFT LE CLEANED AND DRESSING CHANGED. PT UP MULTIPLE TIMES TO VOID AND BM*2, IMPULSIVE EVERYTIME HE HAS TO TOILET. LEFT AC IV REMAINS INTACT AND PATENT, IV MEDICATION ADMINISTERED PER ORDER. PT UP WITH MOD-MAX ASSIST OF 1, GB AND W/C. FREQ. VISUAL CHECKS. CALL LIGHT WITHIN REACH. FALL PRECAUTIONS IN PLACE
--- NOTE | 2019-12-21 16:30 | NUR ---
I have reviewed the documentation by RAMANA HUFF from 12/21/19 to 12/21/19 and I concur with it. PANDA GEORGE, PT, DPT
[2019-12-21 20:00] VITALS: BP 118/58
--- NOTE | 2019-12-22 01:24 | NUR ---
ASSUMED CARE APPROX 1899 EVENING 12/20. PT LYING IN BED AT CHANGE OF SHIFT DOZING OFF AND ON. PT IMPULSIVE WITH URGENCY TO VOID. ASSISTED WITH URINAL IN BED AND PT VOIDING ADEQUATE AMTS URINE. PT TOOK HS MEDS WITH WATER TOLERATING WELL. PT APPEARS TO BE SLEEPING SOUNDLY WITH HOURLY ROUNDING. BED ALARM ON AND CALL LIGHT IN REACH. WILL CONTINUE TO MONITOR.
[2019-12-22 07:30] VITALS: BP 120/57
--- NOTE | 2019-12-22 13:25 | NUR ---
team meeting, reccommendation: back to [facility] once iv abx completed, per id md need to follow toes. start looking into skilled if going if needs iv to cont. dc 9th. if off iv abx can go back to [facility].
--- NOTE | 2019-12-22 18:45 | NUR ---
PT A&OX3, VSS, DENIES PAIN. PATIENT IMPULSIVE AT TIMES, COOPERATIVE, EASY TO REORIENT. PATIENT HAS URGENCY. DRESSING CHANGE DONE. NO SIGNS OF DISTRESS. WILL CONTINUE TO MONITOR.
[2019-12-22 19:40] VITALS: BP 126/62
--- NOTE | 2019-12-23 03:25 | NUR ---
ASSUMED CARE APPROX 1900 EVENING 12/21. PT VOIDING PER URINAL ASSIST AND PT TOOK HS MEDS WITH WATER TOLERATING WELL. PT RESTLESS THIS NIGHT AND TRYING TO GET OUT OF BED FREQUENTLY. ASSISTED PT INTO RECLINER AND SITTING OUT AT NURSES STATION. PT NOW ASLEEP IN RECLINER AT STATION. WILL CONTINUE TO MONITOR.
[2019-12-23 08:00] VITALS: BP 118/74
--- NOTE | 2019-12-23 14:58 | NUR ---
ASSUMED CARES AT 0700. PT AWAKE, ORIENTED TO SELF ONLY, CONFUSED, FORGETFUL AND IMPULSIVE. DENIES PAIN. VITALS REMAIN STABLE. INCISION ON 2ND TOE (LEFT FOOT) CLEANED AND DRESSING CHANGED, 3RD TOE OOZING CLEAR DRAINAGE. LEFT LEG SKIN TEARS CLEANED AND DRESSING CHANGED. PT UP TO THE BATHROOM MULTIPLE TIMES WITH 1 ASSIST, GB AND W/C. PARTICIPATED WELL IN ALL THERAPIES. Q1H VISUAL CHECKS. CALL LIGHT WITHIN REACH. FALL PRECAUTIONS IN PLACE.
--- NOTE | 2019-12-23 15:01 | NUR ---
I have reviewed the documentation by RAMANA HUFF from 12/23/19 to 12/23/19 and I concur with it. PANDA GEORGE, PT, DPT
[2019-12-23 20:02] VITALS: BP 119/73
--- NOTE | 2019-12-24 03:57 | NUR ---
12-23-19 CARE TRANSFERRED 1900 OBSERVED PT SUPINE IN BED WITH EYES OPEN. PT AAOX4, VSS, RR EVEN AND NONLABORED ON RA, PT IMPULSIVE AT TIMES, REMAINS CALM AND COOPERATIVE. PT HAS URGENCY DURING VOIDING AND HAD BEEN UP SEVERAL TIMES TO USE URINAL CLEAR, YELLOW WITH NO FOUL ODOR URINE. DURING MEDICATION ADMIN PT HAD NO DIFFICULTIES. ZERO S/S OF ACUTE DISTRESS NOTED, PT WILL CONTINUE TO BE MONITOR PER 5NR PROTOCOL.
[2019-12-24 08:00] VITALS: BP 123/67
--- NOTE | 2019-12-24 11:04 | NUR ---
cm noted per ID notes, will cont iv abx then change to po when dc back to [facility] care tomorrow. cm notified brother rosalia. will cont following as needed for dc needs.
--- NOTE | 2019-12-24 12:44 | NUR ---
FAXED CLINICAL UPDATE TO [facility] RECEIVED CONFIRMATION AND SPOKE WITH ENRIQUE AYALA AT FACILITY THEY WILL BE READY TO ACCEPT PT BACK TOMORROW.
--- NOTE | 2019-12-24 13:20 | NUR ---
ASSUMED CARES AT 0700. PT ORIENTED TO PERSON ONLY, CONFUSED AND FORGETFUL, IMPULSIVE. DENIES PAIN AT THIS TIME. VITALS REMAIN STABLE. WOUND ON ON LEFT 2ND AND 3RD CLEANED AND DRESSING CHANGED. PT CONTINUES TO RECEIVE IV ANTIOBICS VIA LEFT FOREARM PIV. UP WITH 1 MIN-MOD ASSIST AND TOLERATES WELL. FREQ. VISUAL CHECKS. ROOM NEAR NURSE'S DESK. FALL PRECAUTIONS IN PLACE
[2019-12-24] MEDS ORDERED: VITAMIN D325 MC1 PO (14:03)
[2019-12-24] MEDS ORDERED: IPRAT-ALBUT 0.5-3 ML INH (14:03)
[2019-12-24] MEDS ORDERED: COLACE100 MG PO (14:03)
[2019-12-24] MEDS ORDERED: CARDIZEM CD 18180 M3 PO (14:08)
[2019-12-24] MEDS ORDERED: METOPROLOL SUCC50 MG PO (14:08)
[2019-12-24 20:17] VITALS: BP 113/54
--- NOTE | 2019-12-25 01:37 | NUR ---
PT ALERT AND ORIENTED X 1, CONFUSED. IMPULSIVE AT TIMES. VOIDS YELLOW URINE PER URINAL. USES URINAL WITH ASSIST X 1. LAC SALINE LOCK INTACT AND PATENT. DRESSING TO LEFT FOOT C/D/I. PT DENIES PAIN OR DISCOMFORT. BED ALARM ON FOR SAFETY. PT SLEEPS AT INTERVALS.
[2019-12-25 07:30] VITALS: BP 116/83
[2019-12-25 10:08] VITALS: BP 116/83
--- NOTE | 2019-12-25 10:11 | NUR ---
pt transport express wheel chair for [phone], back to [facility]. bedside nurse to call report to [phone].
[2019-12-25] MEDS ORDERED: AUGMENTIN 875-1 EACH PO (10:32)
[2019-12-25] MEDS ORDERED: PROBIOTIC1 EAC7 PO (10:33)
[2019-12-25 10:39] VITALS: BP 116/83
--- NOTE | 2019-12-25 12:16 | NUR ---
FAXED DC ORDERS/SUMMARY TO [facility] RECEIVED CONFIRMATION.
--- NOTE | 2019-12-25 14:19 | NUR ---
ASSUMED CARE OF PT AT 0700. PT IS A&OX1, IMPULSIVE AND CONFUSED. PT ASSISTED WITH ADL'S THIS AM. PT DENIES PAIN. ORDERS FOR DISCHARGE THIS AM. REPORT CALLED TO ELIZ AT [facility] PRIOR TO DISCHARGE. DRESSING TO LLE CHANGED PRIOR TO DISCHARGE. OUTSIDE TRANSPORT ARRIVED ON UNIT AT 1130 AND PT WAS ASSISTED INTO W/C. BELONGINGS REMOVED AT TIME OF DISCHARGE. PT LEFT UNIT AT 1145.
== END 2019-12-25 11:44 | disposition home health service (06) | DRG 91 ==
PROVIDERS: Nurse Practitioner; Nurse Practitioner Family; ADMIT Physical Medicine & Rehabilitation; ATTEND Physical Medicine & Rehabilitation
DX: G92 Toxic encephalopathy (principal); J96.01 Acute respiratory failure with hypoxia; L03.116 Cellulitis of left lower limb; L03.115 Cellulitis of right lower limb; I48.20 Chronic atrial fibrillation, unspecified; E46 Unspecified protein-calorie malnutrition; D62 Acute posthemorrhagic anemia; E11.52 Type 2 diabetes mellitus with diabetic peripheral angiopathy with gangrene; I96 Gangrene, not elsewhere classified; R53.81 Other malaise; I35.0 Nonrheumatic aortic (valve) stenosis; F03.90 Unspecified dementia, unspecified severity, without behavioral disturbance, psychotic disturbance, mood disturbance, and anxiety; I10 Essential (primary) hypertension; E78.5 Hyperlipidemia, unspecified; Z87.891 Personal history of nicotine dependence; Z68.23 Body mass index [BMI] 23.0-23.9, adult; Z66 Do not resuscitate
CPT/HCPCS: 10112